=== PATIENT | female | born 1940 ===

== ENCOUNTER → 2023-07-13 10:51 | Outpatient (REF) | payer MEDICARE, OTHER, SELFPAY ==
[2023-07-13 11:53] LABS: % Basophils 1.1 % (0-2); % Eosinophils 12.1 % (0-6); % Immature Granulocytes 0.1 % (0-0.5); % Lymphocytes 36.9 % (20.5-51.1); % Monocytes 13.1 % (1.7-9.3); % Neutrophils 36.7 % (42.2-75.2); Absolute Basophils 0.1 10^3/uL (0-0.2); Absolute Eosinophils 0.9 10^3/uL (0-0.7); Absolute Lymphocytes 2.8 10^3/uL (1.2-3.4); Absolute Neutrophils 2.8 10^3/uL (1.4-6.5); Hematocrit 21.9 % (37.0-47.0); Hemoglobin 7.5 g/dL (12.0-16.0); Mean Corp Hgb Conc. 34.2 g/dL (33.0-37.0); Mean Corpuscular Hgb 37.9 pg (27.0-31.0); Mean Corpuscular Volume 110.6 fL (81.0-99.0); Nucleated Red Blood Cells % 0 %; Platelet Count 239 10^3/uL (130-400); Red Blood Cell Count 1.98 10^6/uL (4.20-5.40); Red Cell Dist. Width 14.9 % (11.5-14.5); White Blood Cell Count 7.5 10^3/uL (4.8-10.8)
== END ==
LOC: OLABP 10:51
PROVIDERS: ATTENDING PHYSICIAN Family Medicine
DX: F41.9 Anxiety disorder, unspecified (principal); F32.9 Major depressive disorder, single episode, unspecified; G40.509 Epileptic seizures related to external causes, not intractable, without status epilepticus; E78.5 Hyperlipidemia, unspecified; I10 Essential (primary) hypertension
CPT/HCPCS: 36415; 85025

== ENCOUNTER → 2023-07-20 10:32 | Outpatient (REF) | payer MEDICARE, OTHER, SELFPAY ==
[2023-07-20 11:25] LABS: Hematocrit 21.9 % (37.0-47.0); Hemoglobin 7.5 g/dL (12.0-16.0); Mean Corp Hgb Conc. 34.2 g/dL (33.0-37.0); Mean Corpuscular Hgb 37.7 pg (27.0-31.0); Mean Corpuscular Volume 110.1 fL (81.0-99.0); Mean Platelet Volume 11.5 fL (7.4-10.4); Platelet Count 190 10^3/uL (130-400); Red Blood Cell Count 1.99 10^6/uL (4.20-5.40); Red Cell Dist. Width 14.4 % (11.5-14.5); White Blood Cell Count 6.6 10^3/uL (4.8-10.8)
== END ==
LOC: OLABP 10:32
PROVIDERS: ATTENDING PHYSICIAN Family Medicine
DX: F41.9 Anxiety disorder, unspecified (principal); F32.9 Major depressive disorder, single episode, unspecified; G40.509 Epileptic seizures related to external causes, not intractable, without status epilepticus; E78.5 Hyperlipidemia, unspecified; I10 Essential (primary) hypertension
CPT/HCPCS: 36415; 85027

== ENCOUNTER → 2023-08-17 10:34 | Outpatient (REF) | payer MEDICARE, OTHER, SELFPAY ==
[2023-08-17 12:16] LABS: % Basophils 1.3 % (0-2); % Eosinophils 13.6 % (0-6); % Immature Granulocytes 0.1 % (0-0.5); % Lymphocytes 36.8 % (20.5-51.1); % Monocytes 12.6 % (1.7-9.3); % Neutrophils 35.6 % (42.2-75.2); Absolute Basophils 0.1 10^3/uL (0-0.2); Absolute Lymphocytes 2.6 10^3/uL (1.2-3.4); Absolute Monocytes 0.9 10^3/uL (0.1-0.6); Absolute Neutrophils 2.5 10^3/uL (1.4-6.5); Hematocrit 21.3 % (37.0-47.0); Hemoglobin 7.3 g/dL (12.0-16.0); Mean Corp Hgb Conc. 34.3 g/dL (33.0-37.0); Mean Corpuscular Hgb 37.8 pg (27.0-31.0); Mean Corpuscular Volume 110.4 fL (81.0-99.0); Mean Platelet Volume 10.4 fL (7.4-10.4); Nucleated Red Blood Cells % 0 %; Platelet Count 249 10^3/uL (130-400); Red Blood Cell Count 1.93 10^6/uL (4.20-5.40); Red Cell Dist. Width 14.7 % (11.5-14.5); White Blood Cell Count 7.1 10^3/uL (4.8-10.8)
[2023-08-17 19:14] LABS: Urine Albumin Negative (Neg - Trace); Urine Bilirubin Negative (Negative); Urine Character Clear (Clear); Urine Color Yellow; Urine Glucose Negative (Negative); Urine Ketone Negative (Negative); Urine Leukocyte Trace (Negative); Urine Nitrite Negative (Negative); Urine Occult Blood Negative (Negative); Urine Urobilinogen Negative (Neg - 1+)
[2023-08-17 20:33] LABS: Urine Bacteria Few (Negative)
== END ==
LOC: OLABP 10:34
PROVIDERS: ATTENDING PHYSICIAN Family Medicine
DX: F41.9 Anxiety disorder, unspecified (principal); F32.9 Major depressive disorder, single episode, unspecified; G40.509 Epileptic seizures related to external causes, not intractable, without status epilepticus; E78.5 Hyperlipidemia, unspecified; I10 Essential (primary) hypertension; N39.0 Urinary tract infection, site not specified
CPT/HCPCS: 36415; 81003; 81015; 85025; 87086

== ENCOUNTER → 2023-09-25 11:20 | Outpatient (REF) | payer MEDICARE, OTHER, SELFPAY ==
[2023-09-25 13:25] LABS: % Basophils 0.8 % (0-2); % Eosinophils 15.1 % (0-6); % Immature Granulocytes 0.1 % (0-0.5); % Lymphocytes 30.8 % (20.5-51.1); % Monocytes 10.1 % (1.7-9.3); % Neutrophils 43.1 % (42.2-75.2); Absolute Basophils 0.1 10^3/uL (0-0.2); Absolute Eosinophils 1.3 10^3/uL (0-0.7); Absolute Lymphocytes 2.6 10^3/uL (1.2-3.4); Absolute Monocytes 0.8 10^3/uL (0.1-0.6); Absolute Neutrophils 3.6 10^3/uL (1.4-6.5); Hematocrit 21.1 % (37.0-47.0); Hemoglobin 7.2 g/dL (12.0-16.0); Mean Corp Hgb Conc. 34.1 g/dL (33.0-37.0); Mean Corpuscular Hgb 36.4 pg (27.0-31.0); Mean Corpuscular Volume 106.6 fL (81.0-99.0); Mean Platelet Volume 10.9 fL (7.4-10.4); Nucleated Red Blood Cells % 0 %; Platelet Count 229 10^3/uL (130-400); Red Blood Cell Count 1.98 10^6/uL (4.20-5.40); Red Cell Dist. Width 15.2 % (11.5-14.5); White Blood Cell Count 8.3 10^3/uL (4.8-10.8)
[2023-09-25 14:25] LABS: Blood Urea Nitrogen 31 mg/dl (7-17); Calcium 9.1 mg/dl (8.4-10.2); Carbon Dioxide 27 mmol/L (22-30); Chloride 102 mmol/L (98-107); Glucose 96 mg/dl (70-99); Potassium 3.7 mmol/L (3.5-5.1); Sodium 137 mmol/L (135-145); eGFR 45.19
[2023-09-25 14:35] LABS: Free T4 1.12 ng/dl (0.78-2.19)
[2023-09-25 14:49] LABS: TSH 7.06 uIU/ml (0.47-4.68)
== END ==
LOC: OLABP 11:20
PROVIDERS: ATTENDING PHYSICIAN Family Medicine
DX: F41.9 Anxiety disorder, unspecified (principal); F32.9 Major depressive disorder, single episode, unspecified; G40.509 Epileptic seizures related to external causes, not intractable, without status epilepticus; E78.5 Hyperlipidemia, unspecified; I10 Essential (primary) hypertension
CPT/HCPCS: 36415; 80048; 84439; 84443; 85025

== ENCOUNTER → 2023-10-01 11:29 | Outpatient (REF) | payer SELFPAY ==
[2023-10-01 12:22] LABS: % Eosinophils 15.3 % (0-6); % Immature Granulocytes 0.1 % (0-0.5); % Lymphocytes 32.5 % (20.5-51.1); % Monocytes 13.1 % (1.7-9.3); Absolute Basophils 0.1 10^3/uL (0-0.2); Absolute Eosinophils 1.1 10^3/uL (0-0.7); Absolute Lymphocytes 2.2 10^3/uL (1.2-3.4); Absolute Monocytes 0.9 10^3/uL (0.1-0.6); Absolute Neutrophils 2.6 10^3/uL (1.4-6.5); Blood Urea Nitrogen 37 mg/dl (7-17); Calcium 8.9 mg/dl (8.4-10.2); Carbon Dioxide 26 mmol/L (22-30); Chloride 103 mmol/L (98-107); Glucose 100 mg/dl (70-99); Hematocrit 21.9 % (37.0-47.0); Hemoglobin 7.4 g/dL (12.0-16.0); Mean Corp Hgb Conc. 33.8 g/dL (33.0-37.0); Mean Corpuscular Hgb 36.3 pg (27.0-31.0); Mean Corpuscular Volume 107.4 fL (81.0-99.0); Mean Platelet Volume 10.4 fL (7.4-10.4); Nucleated Red Blood Cells % 0.4 %; Platelet Count 293 10^3/uL (130-400); Potassium 3.9 mmol/L (3.5-5.1); Red Blood Cell Count 2.04 10^6/uL (4.20-5.40); Red Cell Dist. Width 15.5 % (11.5-14.5); Sodium 138 mmol/L (135-145); White Blood Cell Count 6.9 10^3/uL (4.8-10.8); eGFR 45.19
== END ==
LOC: OLABP 11:29
PROVIDERS: ATTENDING PHYSICIAN Family Medicine
DX: F41.9 Anxiety disorder, unspecified (principal); F32.9 Major depressive disorder, single episode, unspecified; G40.509 Epileptic seizures related to external causes, not intractable, without status epilepticus; E78.5 Hyperlipidemia, unspecified; I10 Essential (primary) hypertension
CPT/HCPCS: 36415; 80048; 85025

== ENCOUNTER → 2023-10-03 12:13 | Outpatient (REF) | payer MEDICARE, OTHER, SELFPAY ==
[2023-10-03 13:23] LABS: % Basophils 0.8 % (0-2); % Immature Granulocytes 0.4 % (0-0.5); % Lymphocytes 27.9 % (20.5-51.1); % Monocytes 12.4 % (1.7-9.3); % Neutrophils 46.5 % (42.2-75.2); Absolute Basophils 0.1 10^3/uL (0-0.2); Absolute Eosinophils 1.1 10^3/uL (0-0.7); Absolute Lymphocytes 2.6 10^3/uL (1.2-3.4); Absolute Monocytes 1.1 10^3/uL (0.1-0.6); Absolute Neutrophils 4.3 10^3/uL (1.4-6.5); Hemoglobin 7.3 g/dL (12.0-16.0); Mean Corp Hgb Conc. 34.8 g/dL (33.0-37.0); Mean Corpuscular Hgb 37.1 pg (27.0-31.0); Mean Corpuscular Volume 106.6 fL (81.0-99.0); Mean Platelet Volume 11.5 fL (7.4-10.4); Nucleated Red Blood Cells % 0 %; Platelet Count 165 10^3/uL (130-400); Red Blood Cell Count 1.97 10^6/uL (4.20-5.40); Red Cell Dist. Width 15.4 % (11.5-14.5); White Blood Cell Count 9.2 10^3/uL (4.8-10.8)
[2023-10-03 13:51] LABS: Blood Urea Nitrogen 35 mg/dl (7-17); Calcium 8.9 mg/dl (8.4-10.2); Carbon Dioxide 29 mmol/L (22-30); Chloride 100 mmol/L (98-107); Glucose 94 mg/dl (70-99); Sodium 135 mmol/L (135-145); eGFR 50.17
== END ==
LOC: OLABP 12:13
PROVIDERS: ATTENDING PHYSICIAN Family Medicine
DX: F41.9 Anxiety disorder, unspecified (principal); F32.9 Major depressive disorder, single episode, unspecified; G40.509 Epileptic seizures related to external causes, not intractable, without status epilepticus; E78.5 Hyperlipidemia, unspecified; I10 Essential (primary) hypertension
CPT/HCPCS: 36415; 80048; 85025

== ENCOUNTER → 2023-10-19 10:18 | Outpatient (REF) | payer MEDICARE, OTHER, SELFPAY ==
[2023-10-19 11:24] LABS: % Basophils 0.9 % (0-2); % Eosinophils 11.1 % (0-6); % Immature Granulocytes 0.3 % (0-0.5); % Lymphocytes 34.1 % (20.5-51.1); % Monocytes 12.2 % (1.7-9.3); % Neutrophils 41.4 % (42.2-75.2); Absolute Basophils 0.1 10^3/uL (0-0.2); Absolute Eosinophils 0.9 10^3/uL (0-0.7); Absolute Lymphocytes 2.6 10^3/uL (1.2-3.4); Absolute Monocytes 0.9 10^3/uL (0.1-0.6); Absolute Neutrophils 3.2 10^3/uL (1.4-6.5); Hematocrit 21.5 % (37.0-47.0); Hemoglobin 7.5 g/dL (12.0-16.0); Mean Corp Hgb Conc. 34.9 g/dL (33.0-37.0); Mean Corpuscular Hgb 37.9 pg (27.0-31.0); Mean Corpuscular Volume 108.6 fL (81.0-99.0); Mean Platelet Volume 11.4 fL (7.4-10.4); Nucleated Red Blood Cells % 0.3 %; Platelet Count 163 10^3/uL (130-400); Red Blood Cell Count 1.98 10^6/uL (4.20-5.40); Red Cell Dist. Width 15.9 % (11.5-14.5); White Blood Cell Count 7.7 10^3/uL (4.8-10.8)
== END ==
LOC: OLABP 10:18
PROVIDERS: ATTENDING PHYSICIAN Family Medicine
DX: F41.9 Anxiety disorder, unspecified (principal); F32.9 Major depressive disorder, single episode, unspecified; G40.509 Epileptic seizures related to external causes, not intractable, without status epilepticus; E78.5 Hyperlipidemia, unspecified; I10 Essential (primary) hypertension
CPT/HCPCS: 85025

== ENCOUNTER → 2023-11-16 11:56 | Outpatient (REF) | payer MEDICARE, OTHER, SELFPAY ==
[2023-11-16 12:36] LABS: % Eosinophils 9.1 % (0-6); % Immature Granulocytes 0.2 % (0-0.5); % Lymphocytes 42.5 % (20.5-51.1); % Monocytes 10.4 % (1.7-9.3); % Neutrophils 36.8 % (42.2-75.2); Absolute Basophils 0.1 10^3/uL (0-0.2); Absolute Eosinophils 0.9 10^3/uL (0-0.7); Absolute Lymphocytes 4.3 10^3/uL (1.2-3.4); Absolute Neutrophils 3.7 10^3/uL (1.4-6.5); Hematocrit 24.9 % (37.0-47.0); Hemoglobin 8.5 g/dL (12.0-16.0); Mean Corp Hgb Conc. 34.1 g/dL (33.0-37.0); Mean Corpuscular Hgb 37.3 pg (27.0-31.0); Mean Corpuscular Volume 109.2 fL (81.0-99.0); Mean Platelet Volume 11.6 fL (7.4-10.4); Nucleated Red Blood Cells % 0.2 %; Platelet Count 177 10^3/uL (130-400); Red Blood Cell Count 2.28 10^6/uL (4.20-5.40); Red Cell Dist. Width 15.7 % (11.5-14.5)
== END ==
LOC: OLABPG 11:56
PROVIDERS: ATTENDING PHYSICIAN Family Medicine
DX: J18.9 Pneumonia, unspecified organism (principal)
CPT/HCPCS: 36415; 85025

== ENCOUNTER 2023-11-28 20:01 | Inpatient (IN) | payer MEDICARE, OTHER, SELFPAY ==
[2023-11-28] VITALS (12 sets, daily range): BP systolic 94–136; BP diastolic 44–59; BMI 23.4
[2023-11-28 14:27] LABS: % Basophils 0.3 % (0-2); % Eosinophils 0.1 % (0-6); % Immature Granulocytes 0.5 % (0-0.5); % Lymphocytes 6.2 % (20.5-51.1); % Monocytes 6.8 % (1.7-9.3); % Neutrophils 86.1 % (42.2-75.2); Absolute Basophils 0.1 10^3/uL (0-0.2); Absolute Immature Granulocytes 0.1 10^3/uL (0-0.05); Absolute Lymphocytes 1.2 10^3/uL (1.2-3.4); Absolute Monocytes 1.3 10^3/uL (0.1-0.6); Hematocrit 21.3 % (37.0-47.0); Hemoglobin 7.5 g/dL (12.0-16.0); Mean Corp Hgb Conc. 35.2 g/dL (33.0-37.0); Mean Corpuscular Hgb 38.7 pg (27.0-31.0); Mean Corpuscular Volume 109.8 fL (81.0-99.0); Mean Platelet Volume 10.2 fL (7.4-10.4); Nucleated Red Blood Cells % 0 %; Platelet Count 211 10^3/uL (130-400); Red Blood Cell Count 1.94 10^6/uL (4.20-5.40); Red Cell Dist. Width 14.8 % (11.5-14.5); Urine Albumin Trace (Neg - Trace); Urine Bilirubin Negative (Negative); Urine Character Clear (Clear); Urine Color Yellow; Urine Glucose Negative (Negative); Urine Ketone Negative (Negative); Urine Leukocyte Trace (Negative); Urine Nitrite Negative (Negative); Urine Occult Blood Negative (Negative); Urine Urobilinogen Negative (Neg - 1+); White Blood Cell Count 19.7 10^3/uL (4.8-10.8)
[2023-11-28 14:46] LABS: Lactic Acid 1.9 mmol/L (0.7-2.0)
[2023-11-28 14:47] LABS: Urine Mucus Many; Urine Squamous Cell >30 /LPF (Few)
[2023-11-28 14:51] LABS: Urine Red Blood Cell 0-2 /HPF (0-2)
[2023-11-28 14:53] LABS: ALT (SGPT) 68 U/L (0-35); AST (SGOT) 69 U/L (14-36); Albumin 3.7 g/dl (3.5-5.0); Alkaline Phosphatase 79 U/L (38-126); Blood Urea Nitrogen 37 mg/dl (7-17); Calcium 9.1 mg/dl (8.4-10.2); Carbon Dioxide 26 mmol/L (22-30); Chloride 101 mmol/L (98-107); Glucose 154 mg/dl (70-99); Potassium 3.6 mmol/L (3.5-5.1); Sodium 140 mmol/L (135-145); Total Bilirubin 1.6 mg/dl (0.2-1.3); Total Protein 6.3 g/dl (6.3-8.2); Urine Bacteria Few (Negative); eGFR 37.56
--- NOTE | 2023-11-28 15:23 | ED.GENMED ---
History of Present Illness
<Virginia Gusman PA-C - Last Filed: 11/28/23 19:06>
General
Chief Complaint: Fever
Source: patient
Exam Limitations: none
Time Seen by Provider: 11/28/23 14:46
Nursing documentation reviewed up to this point in time: agreed with
History of Present Illness
History of Present Illness:
Patient is an 83-year-old female with history hypertension, dementia presenting to the emergency department from [facility] for evaluation of fever and abdominal pain. Patient's daughter states that she received a call today stating that her mom was
complaining of abdominal pain and was refusing to eat. She was found to have a temp of 101F. Patient's daughter did see mom yesterday and she was asymptomatic and at her baseline. Patient unable to contribute much to history due to dementia
although she does deny any chest pain or shortness of breath. No vomiting. No cough or recent viral URI.
Patient's daughter does report a significant history of UTIs and is wondering if this may be causing symptoms.
Past History
<Virginia Gusman PA-C - Last Filed: 11/28/23 19:06>
Past History
ED Past Medical History: Cancer (Breast CA), CVA (X 2), HTN, Seizures, Hypothyroidism and Other (Ambulatory dysfunction using walker, UTI, urinary retention, anxiety/depression, myxedema coma)
ED Past Surgical History: Other (Cataracts, Lumpectomy)
Social History
Tobacco: Former smoker
Alcohol: None
Personal:
Living: assisted living ([facility])
Review of Systems
<Virginia Gusman PA-C - Last Filed: 11/28/23 19:06>
Review of Systems
Allergies reviewed?: Yes
All Other Systems: ROS reviewed and negative except as documented in HPI and ROS
Phy Exam
<Virginia Gusman PA-C - Last Filed: 11/28/23 19:06>
Physical Exam
Physical Exam:
Vitals: Temp of 101 F. Otherwise vital signs stable.
General: Patient is frail appearing.
Skin: Warm and dry, no rashes or lesions
Head: Normocephalic, atraumatic
Eyes: Sclera nonicteric. EOMs intact. No nystagmus.
Throat: Protecting airway
Neck: Normal ROM, no cervical spine tenderness, no meningismus
Cardiac: Regular rate and rhythm, no murmurs.
Pulm: Normal respiratory effort, no wheezes, rales, rhonchi heard on exam.
Abdomen: Abdomen soft. Moderate diffuse abdominal tenderness without rebound tenderness or guarding. Abdomen nondistended. Abdomen nondistended
Extremities: No evidence of cyanosis or edema
Neuro: Grossly intact.
Psychiatric: Normal affect.
Course
<Virginia Gusman PA-C - Last Filed: 11/28/23 19:06>
Orders/Labs/Results
Orders:
Orders
11/28/23 14:19
Complete Blood Count/With Diff Urgent
Comprehensive Metabolic Panel Urgent
Lactic Acid Urgent
Lipase Urgent
Comment: ADD ON
Urinalysis Reflex To Culture Urgent
Date Specimen was Collected: 11/28/23
Time Specimen was Collected: 14:08
Urine Microscopic Reflex Cult Urgent
Urine Culture Urgent
JANIS Source: U
Specimen Description:
Date Specimen was Collected: 11/28/23
Time Specimen was Collected: 14:08
Comment: ADD ON
11/28/23 Dinner
Full Liquids
Full Liquid: No Red Liquids
11/28/23 15:20
Add On- LAB Urgent
Tests Added?: lipase
CT Abd/Pel (IV only)-DH only Urgent
Comment:
Reason For Exam: diffuse abdominal pain, fever
0.9% Sodium Chloride 1000 ml [Nss] 1,000 ml IV BOLUS
11/28/23 15:21
Acetaminophen [Tylenol] 650 mg PO NOW STA
11/28/23 15:28
Blood Culture Urgent
JANIS Source: Blood/Venous
Specimen Description:
11/28/23 15:32
Blood Culture Urgent
JANIS Source: Blood/Venous
Specimen Description:
11/28/23 16:23
COVID-19 Antigen Urgent
Source: Nasal Swab
11/28/23 17:08
Piperacillin/Tazo 3.375 Gram [Zosyn] 3.375 gram in 50 ml IV NOW
Vancomycin 1 Gram/200 ml [Vancocin] 1 gram in 200 ml IV NOW
11/28/23 17:11
Add On - Microbiology Urgent
Tests Added?: urine culture
11/28/23 17:33
Cefepime HCl [Maxipime] 2,000 mg IV NOW STA
11/28/23 18:51
Admit/Transfer Patient As Directed
Co-Sign Provider:
Level of Care: Inpatient admission
Assign to:: Medical/Surgical
Physician / Group: Hospitalist
Diagnosis: Fever
Reason for Hospitalization: Fever
Expected length of stay greater than two midnights?: Yes
ELOS- Estimated Length of Stay in days: 3
I certify the patient meets the requirements for IP care: Yes
PRN Pain Medication Management As Directed
May give lesser potent ordered pain med per pt: Yes
preference::
Protocol:: Medication orders for pain may be administered in a
manner that supports deferring to patient preference
when the pt is:
- Requesting an ordered lesser potent pain medication.
Least to most potent pain medications are defined
as: acetaminophen < NSAID < tramadol < opioids
(morphine, oxycodone, hydromorphone).
- Requesting a lesser dose of the same medication IF
ORDERED.
- Requesting a less intrusive route of administration
if both routes are prescribed by the provider (PO <
IV).
11/28/23 18:59
Code Status As Directed
Resuscitation Status: Do not resuscitate
Reached after discussion with pt or family/Healthcare POA: Yes
DNR Bracelet Application ONCE
11/28/23 19:06
DX Deep Vein Thrombosis Video Routine
11/28/23 19:06
Bladder Scan As Directed
Follow Bladder Retention/Intermittent Cath Algorithm?: Yes
PRN if no void in __ hours: 6
Frequency: Per Retention Algorithm
If Bladder Scan Result >: 400
then:: Straight cath
I&O [Intake/ Output] As Directed
Frequency: q12h
Sequential Compression Device [Pneumatic Compression Sleeves] As Directed
Type: Knee high
Straight Cath As Directed
Frequency: Per Retention Algorithm
Additional Instructions: straight cath as needed per acute urinary retention algorithm for 24 hrs
Additional Instructions: for bladder scan greater than 400 mL
11/28/23 19:17
H&H Q6H
11/28/23 19:31
Type And Crossmatch Urgent
11/28/23 19:44
CR Chest - 2 Views Urgent
Comment:
Reason For Exam: Fever
11/29/23 01:17
H&H Q6H
Abnormal Lab Results
11/28/23
14:19
WBC 19.7 H 10^3/uL
(4.8-10.8)
RBC 1.94 L 10^6/uL
(4.20-5.40)
Hgb 7.5 L g/dL
(12.0-16.0)
Hct 21.3 L %
(37.0-47.0)
MCV 109.8 H fL
(81.0-99.0)
MCH 38.7 H pg
(27.0-31.0)
RDW 14.8 H %
(11.5-14.5)
Abs Immat Gran (auto) 0.1 H 10^3/uL
(0-0.05)
Absolute Neuts (auto) 17.0 H 10^3/uL
(1.4-6.5)
Absolute Monos (auto) 1.3 H 10^3/uL
(0.1-0.6)
Neutrophils % 86.1 H %
(42.2-75.2)
Lymphocytes % 6.2 L %
(20.5-51.1)
BUN 37 H mg/dl
(7-17)
Creatinine 1.4 H mg/dL
(0.6-1.0)
Glucose 154 H mg/dl
(70-99)
Total Bilirubin 1.6 H mg/dl
(0.2-1.3)
AST 69 H U/L
(14-36)
ALT 68 H U/L
(0-35)
Leukocyte Esterase Rfl Trace A
(Negative)
Urine Bacteria (Reflex) Few A
(Negative)
11/28/23 14:19
Vital Signs
Initial and Last Documented VS:
Initial Vital Signs
BP
109/47
11/28/23 14:07
Last Documented Vital Signs
Temp Pulse Resp BP Pulse Ox
97.6 F 68 21 111/44 93
11/28/23 17:28 11/28/23 19:00 11/28/23 19:00 11/28/23 19:00 11/28/23 18:10
<Tom Elias, DO - Last Filed: 11/28/23 19:46>
Orders/Labs/Results
Orders:
Orders
11/28/23 14:19
Complete Blood Count/With Diff Urgent
Comprehensive Metabolic Panel Urgent
Lactic Acid Urgent
Lipase Urgent
Comment: ADD ON
Urinalysis Reflex To Culture Urgent
Date Specimen was Collected: 11/28/23
Time Specimen was Collected: 14:08
Urine Microscopic Reflex Cult Urgent
Urine Culture Urgent
JANIS Source: U
Specimen Description:
Date Specimen was Collected: 11/28/23
Time Specimen was Collected: 14:08
Comment: ADD ON
11/28/23 Dinner
Full Liquids
Full Liquid: No Red Liquids
11/28/23 15:20
Add On- LAB Urgent
Tests Added?: lipase
CT Abd/Pel (IV only)-DH only Urgent
Comment:
Reason For Exam: diffuse abdominal pain, fever
0.9% Sodium Chloride 1000 ml [Nss] 1,000 ml IV BOLUS
11/28/23 15:21
Acetaminophen [Tylenol] 650 mg PO NOW STA
11/28/23 15:28
Blood Culture Urgent
JANIS Source: Blood/Venous
Specimen Description:
11/28/23 15:32
Blood Culture Urgent
JANIS Source: Blood/Venous
Specimen Description:
11/28/23 16:23
COVID-19 Antigen Urgent
Source: Nasal Swab
11/28/23 17:08
Piperacillin/Tazo 3.375 Gram [Zosyn] 3.375 gram in 50 ml IV NOW
Vancomycin 1 Gram/200 ml [Vancocin] 1 gram in 200 ml IV NOW
11/28/23 17:11
Add On - Microbiology Urgent
Tests Added?: urine culture
11/28/23 17:33
Cefepime HCl [Maxipime] 2,000 mg IV NOW STA
11/28/23 18:51
Admit/Transfer Patient As Directed
Co-Sign Provider:
Level of Care: Inpatient admission
Assign to:: Medical/Surgical
Physician / Group: Hospitalist
Diagnosis: Fever
Reason for Hospitalization: Fever
Expected length of stay greater than two midnights?: Yes
ELOS- Estimated Length of Stay in days: 3
I certify the patient meets the requirements for IP care: Yes
PRN Pain Medication Management As Directed
May give lesser potent ordered pain med per pt: Yes
preference::
Protocol:: Medication orders for pain may be administered in a
manner that supports deferring to patient preference
when the pt is:
- Requesting an ordered lesser potent pain medication.
Least to most potent pain medications are defined
as: acetaminophen < NSAID < tramadol < opioids
(morphine, oxycodone, hydromorphone).
- Requesting a lesser dose of the same medication IF
ORDERED.
- Requesting a less intrusive route of administration
if both routes are prescribed by the provider (PO <
IV).
11/28/23 18:59
Code Status As Directed
Resuscitation Status: Do not resuscitate
Reached after discussion with pt or family/Healthcare POA: Yes
DNR Bracelet Application ONCE
11/28/23 19:06
DX Deep Vein Thrombosis Video Routine
11/28/23 19:06
Bladder Scan As Directed
Follow Bladder Retention/Intermittent Cath Algorithm?: Yes
PRN if no void in __ hours: 6
Frequency: Per Retention Algorithm
If Bladder Scan Result >: 400
then:: Straight cath
I&O [Intake/ Output] As Directed
Frequency: q12h
Sequential Compression Device [Pneumatic Compression Sleeves] As Directed
Type: Knee high
Straight Cath As Directed
Frequency: Per Retention Algorithm
Additional Instructions: straight cath as needed per acute urinary retention algorithm for 24 hrs
Additional Instructions: for bladder scan greater than 400 mL
11/28/23 19:17
H&H Q6H
11/28/23 19:31
Type And Crossmatch Urgent
11/28/23 19:44
CR Chest - 2 Views Urgent
Comment:
Reason For Exam: Fever
11/29/23 01:17
H&H Q6H
Abnormal Lab Results
11/28/23
14:19
WBC 19.7 H 10^3/uL
(4.8-10.8)
RBC 1.94 L 10^6/uL
(4.20-5.40)
Hgb 7.5 L g/dL
(12.0-16.0)
Hct 21.3 L %
(37.0-47.0)
MCV 109.8 H fL
(81.0-99.0)
MCH 38.7 H pg
(27.0-31.0)
RDW 14.8 H %
(11.5-14.5)
Abs Immat Gran (auto) 0.1 H 10^3/uL
(0-0.05)
Absolute Neuts (auto) 17.0 H 10^3/uL
(1.4-6.5)
Absolute Monos (auto) 1.3 H 10^3/uL
(0.1-0.6)
Neutrophils % 86.1 H %
(42.2-75.2)
Lymphocytes % 6.2 L %
(20.5-51.1)
BUN 37 H mg/dl
(7-17)
Creatinine 1.4 H mg/dL
(0.6-1.0)
Glucose 154 H mg/dl
(70-99)
Total Bilirubin 1.6 H mg/dl
(0.2-1.3)
AST 69 H U/L
(14-36)
ALT 68 H U/L
(0-35)
Leukocyte Esterase Rfl Trace A
(Negative)
Urine Bacteria (Reflex) Few A
(Negative)
11/28/23 14:19
Vital Signs
Initial and Last Documented VS:
Initial Vital Signs
BP
109/47
11/28/23 14:07
Last Documented Vital Signs
Temp Pulse Resp BP Pulse Ox
97.6 F 68 21 111/44 93
11/28/23 17:28 11/28/23 19:00 11/28/23 19:00 11/28/23 19:00 11/28/23 18:10
<Virginia Gusman PA-C - Last Filed: 11/28/23 19:06>
MDM/Problems Addressed
Differential Diagnosis Includes:
Not limited to: Cholecystitis, cholangitis, choledocholithiasis, appendicitis, bowel perforation, bowel obstruction, diverticulitis, UTI, urosepsis, pyelonephritis
MDM/Problems Addressed:
83-year-old female with history as documented presenting from nursing facility for evaluation of abdominal pain and associated fever today. No vomiting. Patient has stable vital signs, febrile to 101F on arrival to emergency department. Physical
exam as above. Patient in no apparent distress. No focal neurologic deficits noted, patient appears at her baseline. Abdomen is soft and diffusely tender throughout. Heart regular rate and rhythm. Lungs clear bilaterally. Patient appears in no
apparent respiratory distress. Labs were initiated in triage which are significant for a leukocytosis of 19.7. Hemoglobin of 7.5 which appears chronic and stable per patient's history of anemia. Mild renal insufficiency noted with elevation in
creatinine to 1.4. Lactic acid was normal. Some elevation noted to total bilirubin to 1.6 and mild elevation in both AST and ALT. Lipase is normal. Given patient's history of leukocytosis with abdominal pain�will check CT abdomen/pelvis. Will
check UA, as well. Will treat fever with Tylenol, give IV fluids. Will send blood cultures. Anticipate admission
Urine does not appear infected. Will send urine culture given patient history and fever. CT report reviewed. No acute intra-abdominal abnormalities noted. Patient's fever has come down to 97.6F. COVID negative�no respiratory symptoms, do not
suspect pulmonary etiology. Differential broad although includes cholangitis, choledocholithiasis, bacteremia, etc. Patient remains hemodynamically stable. Will initiate broad-spectrum antibiotics including vancomycin and cefepime given patient's
PCN allergy. Given significant leukocytosis, fever, and patient age�will admit to hospitalist for further evaluation/management. May benefit from GI consult and further imaging. Blood cultures and urine culture pending.
Chronic conditions affecting care:
Hypertension
Acute Exacerbation and/or Progression of Chronic Illness:
N/A
<Virginia Gusman PA-C - Last Filed: 11/28/23 19:06>
*Radiology
Radiology exam reviewed: preliminary read by ED provider and radiology read reviewed
*Pulse Oximetry
Patient hypoxic: no
*EKG
Interpreted by ED Provider?: NA
*Jewel Setter Interpretation
Rate: normal and Jewel Setter- N/A
Interpretation: normal
Heart Rate: 68
Rhythm: sinus
*Critical Care Note
Total Time (30-74mins, 75-104mins- exclusive of procedures): Not Applicable
<Virginia Gusman PA-C - Last Filed: 11/28/23 19:06>
Patient Management
Discussion with other providers: Hospitalist
Escalation/DeEscalation of care consider admission/obs:
Admit for IV antibiotics, further workup for etiology of abdominal pain and fever
ED Attending Note
<Virginia Gusman PA-C - Last Filed: 11/28/23 19:06>
-
Portions of this chart may have been created with voice recognition software.� Occasional wrong word or��sound alike� substitutions may have occurred due to the inherent limitations of voice recognition software.
<Tom Elias DO - Last Filed: 11/28/23 19:46>
ED Attending Note
Patient seen and examined by attending physician: Yes
I performed the substantive portion of visit, reviewed & personally made and approve the management plan that is documented in note by myself or ALEC.: Yes
ED Attending Note:
83-year-old female who presents with a fever and change in mental status. I did independently speak with the patient's daughter who states that yesterday she was with her and seemed fine. Was called by the nurse today that she did not want to eat
and did not seem herself. She is found to be febrile. Patient was sent for evaluation. It is noted that there was some concern for abdominal pain. Exam: Moderate to severe tenderness throughout the abdomen. Patient slightly confused. No
respiratory distress. Heart regular. Assessment and plan: Leukocytosis noted in the face of fever in an elderly patient. Lactic okay. CT grossly negative. Check chest x-ray. Treat with broad-spectrum antibiotics pending cultures.
Discharge Plan
Departure
Patient Disposition: Admit
Date of Disposition: 11/28/23
Time of Disposition: 17:12
Presentation/result/management discussed w/ accepting MD/DO: Hospitalist
Discharge Problem:
Fever, Leukocytosis
Prescriptions:
No Action
atorvastatin 80 mg Tablet
80 mg PO HS
cyanocobalamin (vitamin B-12) 500 mcg Tablet
500 mcg PO DAILY
bisacodyl [Dulcolax (bisacodyl)] 10 mg Suppository
10 mg CA DAILY PRN (Reason: constipation)
losartan 50 mg tablet
50 mg PO DAILY
diltiazem HCl 240 mg capsule,extended release 24hr
240 mg PO DAILY
levothyroxine 150 mcg tablet
150 mcg PO DAILY
gabapentin 100 mg capsule
100 mg PO HS
folic acid 400 mcg Tablet
0.4 mg PO DAILY
magnesium hydroxide [Milk of Magnesia] 400 mg/5 mL Suspension
30 ml PO Q98H PRN (Reason: day 4 no bm)
ferrous sulfate 325 mg (65 mg iron) Tablet
325 mg PO Q48H
furosemide 40 mg Tablet
40 mg PO DAILY
acetaminophen [Tylenol] 325 mg Tablet
650 mg PO Q4HPRN MDD 3000 mg PRN (Reason: mild pain/fever >100)
Fleet Enema 19-7 gram/118 mL Enema
118 ml CA DAILYPRN PRN (Reason: constipation)
memantine 10 mg Tablet
10 mg PO DAILY
donepezil 10 mg Tablet,Disintegrating
10 mg PO DAILY
diclofenac sodium 1 % Gel
1 ea TOPICAL BID
Referrals:
Gagan Allison MD [Family Provider] -
Interventions
Interventions:
*Risk Screen - Suicide Last Done: 11/28/23 14:14
*General Assessment Last Done: 11/28/23 14:13
*Neglect/Abuse Screening Last Done: 11/28/23 14:14
*ED COVID-19 Vaccine History Last Done: 11/28/23 14:13
ED- Neurological Assessment Last Done: 11/28/23 14:15
ED-Skin Assessment Last Done: 11/28/23 14:15
Discharge Date and Time
Print Language: BARBADIAN
[2023-11-28] MEDS: TYLENOL 650 MG PO (16:06)
[2023-11-28] MEDS: NSS 1000 IV (16:06)
[2023-11-28 16:28] LABS: Lipase 33 U/L (23-300)
[2023-11-28 16:48] LABS: COVID-19 Antigen Negative (Negative)
[2023-11-28] MEDS: VANCOCIN 200 IV (17:19)
[2023-11-28] MEDS: MAXIPIME 2000 MG IV (18:27)
--- NOTE | 2023-11-28 19:28 | HPS.HSE ---
Family Physician
-
Family Physician: Gagan Allison MD
Chief Complaint
-
'left leg hurts' and 'hungry'
History of Present Illness
83yo F with PMH chronic anemia, dementia, CVAs, h/o UTIs vs urinary retention, presents from [facility] to ED 11/27 due to reported abdominal pain and decreased appetite. Shawna is a poor historian and her only complaints that she reports to me is that
her left leg/knee hurts and that she is hungry because 'they didn't give me any food today.' Review of systems otherwise is entirely negative, and she denies abdominal pain, poor appetite, pain/difficulty/choking when swallowing, nausea, vomiting.
Also denies fevers, chills, headache, lightheadedness, dizziness, chest pain, shortness of breath, cough. History primarily obtained from review of records and daughter Sonia at bedside. Per her daughter, the day nurse at [facility] tried to
encourage patient to eat today, but she refused meals and only had mateus gibson and a bit of jello. She has occasional right sided pain, thought to be positional. Prior to this, she was in her usual state of health which is confused, minimally
ambulatory with assistance (primarily in wheelchair), with decent appetite. Last bowel movement was yesterday, no black or bloody stools per daughter. Unclear if any pain or difficulty when voiding. Denies vaginal bleeding.
Medical History
Past Medical History
Past Medical History: Reports Cancer, CVA, Dementia, HTN, Hypercholesterolemia, Hypothyroidism and Seizures
Additional Past Medical History:
Chronic anemia
Hypothyroidism
Breast cancer s/p lumpectomy ~40y ago
Dementia
CVA- 09/2022, 05/2022, 2014
Seizures- most recently 09/2022
Ambulatory dysfunction
HTN
?Urinary retention
?UTIs
Past Surgical History: Reports Other
Additional Past Surgical History:
Lumpectomy ~40y ago
Daughter denies other surgical history
Social History
Unable to obtain full social history at this time due to: Dementia
Living: Jail
Family History
Family History: Unable to Obtain
Allergies / Home Medications
Allergies reflects when Allergies were last updated in [employer].
Home Medications with original date entered in [employer]
Allergy/Medication List:
Diphenhydramine- ?rash
PCN- ?rash
furosemide/lasix- hearing loss
Review of Systems
-
Unable to obtain full review of systems at this time due to: Dementia
History Source: Patient and Family
Physical Exam
Vital Signs
Vital Signs
Temp Pulse Resp BP Pulse Ox
97.6 F 68 21 111/44 93
11/28/23 17:28 11/28/23 19:00 11/28/23 19:00 11/28/23 19:00 11/28/23 18:10
Physical Exam
General: Other (elderly woman who appears her stated age, appears uncomfortable, +frontotemporal wasting; pleasant, confused; some expressive aphasia, patient seems frustrated by this)
HEENT: NormoCephalic, Anicteric and Atraumatic
Respiratory: Clear and Non Labored Respirations; No Wheezes
Cardiac: S1/S2 and Regular Rhythm
GI: Soft, Non Distended, Normal Bowel Sounds and Tender (mild TTP left)
Musculoskeletal: No Clubbing, No Cyanosis and No Edema
Skin: Warm and Dry
Neuro: Awake, Alert, Oriented (oriented to person only (name/); states that she is in [facility], and the month is September) and Tremors
Psych: Confused, Anxious and Apparent Dementia; No Intact Judgment/Insight
Laboratory Results
-
11/28/23 14:19
Laboratory Results
Lactic Acid 1.9 mmol/L (0.7-2.0) 11/28/23 14:19
Total Bilirubin 1.6 mg/dl (0.2-1.3) H 11/28/23 14:19
AST 69 U/L (14-36) H 11/28/23 14:19
ALT 68 U/L (0-35) H 11/28/23 14:19
Alkaline Phosphatase 79 U/L (38-126) 11/28/23 14:19
Lipase 33 U/L (23-300) 11/28/23 14:19
Data Reviewed
-
CT Scan: Image Personally Visualized and interpreted, Report Reviewed by me and Discussed with Physician
Lab Data: Labs Reviewed by me and Discussed with Physician
Old Records: Reviewed
Impression/Plan
-
83yo F with PMH chronic anemia, dementia, CVAs, h/o UTIs vs urinary retention, presents from [facility] to ED 11/27 for poor oral intake, and found to be febrile with leukocytosis
Fever of unknown etiology
Leukocytosis
SIRS criteria
- Urine culture pending, blood culture x2 pending
- Will continue empiric cefepime, vanc started in ED and add metronidazole.
- PCN allergy noted, uncertain reaction, will avoid zosyn at this time
- Follow fever trend, repeat AM CBC with diff, gentle IV hydration
- Await further results and will reassess plan
Chronic anemia
- Hgb on arrival 7.5 (baseline appears to be in 7-8s)
- Serial H&Hs x2 overnight, repeat CBC in AM
- Iron studies, b12, folate pending
- Check reticulocyte count, peripheral blood smear
- Type and cross match ordered
- Transfuse for hgb < 7, or if concern for symptomatic anemia or blood loss
- Continue home B12, Fe
- Avoid pharmaceutical vte ppx
Hypothyroidism
- TSH pending
- Continue home synthroid 150 mcg qd
HTN
- Hold diltiazem given low normal BPs in ED
- Continue to monitor VS
?History of urinary retention
?History of UTIs
- UA, urine culture as above
- Bladder scan protocol, attempt trial of void prior to straight catheterization
- I&Os
Dementia- continue home memantine and donepezil
History of CVA x3
Seizures- most recently 09/2022; not on medications, unknown etiology; seizure precautions
Ambulatory dysfunction- uses wheelchair at baseline, ambulatory for few steps with assistance per daughter
HLD- continue home atorvastatin
Chronic pain- continue acetaminophen prn, home gabapentin 100mg qhs, home topical diclofenac prn
Diet: full liquid
Code: DNR
POA: Daughter Sonia
VTE ppx: SCDs
Dispo planning: TBD
[2023-11-28 20:28] LABS: Hematocrit 19.4 % (37.0-47.0); Hemoglobin 6.9 g/dL (12.0-16.0)
--- NOTE | 2023-11-28 21:10 | PTCARENOTE ---
Pt received from ED to [facility].
--- NOTE | 2023-11-28 21:41 | W.PN.UPDATE ---
Update Note
Progress Note Update
RN notified BRIE[facility] SEWER of hgb 6.9, no active bleeding, 118/55 BP, HR is 55, SPO2 is 94% at RA, RR 22. Patient is confused (Dementia) Blood consent received via telephone from daughter Sonia. Type and screen pending. will order 1 unit of PRBC. heme test
ordered.
[2023-11-28] MEDS: FLAGYL 500 MG PO (21:48)
[2023-11-28] MEDS: NEURONTIN 100 MG PO (21:48)
[2023-11-28] MEDS: LIPITOR 80 MG PO (21:48)
--- NOTE | 2023-11-28 22:47 | PHA.VAN.IN ---
Assessment
- Assessment
Renal Function: Appears elevated from baseline (03/30/23 BASELINE SCR: 0.8)
Concomitant Antimicrobials: CEFEPIME
- Previous Dosing Experience
Previous Regimen: NONE
Plan
- Plan
Initial / Loading Dose: 1500MG
Maintenance Regimen: DOSING BY RANDOM LEVELS
Monitoring: RANDOM VANCOMYCIN LEVEL 11/29/23 AM
Pharmacokinetics Vancomycin I
- -
Patient Age: 83
Patient Sex: Female
Vancomycin Day #: 1
Indication: Other (FUO)
Requesting Provider: JUANI
Pertinent Antimicrobial Allergies:
Allergies
Penicillins Allergy (Verified 11/28/23 17:12)
Unknown
Height / Weight:
Height 5 ft 6 in
Actual Weight 65.862 kg
- Vital Signs / Lab Results
Temp Pulse Resp BP Pulse Ox
98.1 F 73 16 136/59 92
11/28/23 22:17 11/28/23 22:17 11/28/23 22:17 11/28/23 22:17 11/28/23 21:30
Lab Results - Hematology
11/28/23
14:19
WBC 19.7 H
Lab Results - Chemistry
11/28/23
14:19
BUN 37 H
Creatinine 1.4 H
Albumin 3.7
11/28/23
14:19
Lactic Acid 1.9
Lab Results - Urine
11/28/23
14:19
Urine Nitrite (Reflex) Negative
Leukocyte Esterase Rfl Trace A
Urine WBC (Reflex) 3-5
Ur Squamous Epith Cells >30
Urine Bacteria (Reflex) Few A
[2023-11-29 00:40] VITALS: BP 141/45
[2023-11-29 00:45] VITALS: BP 141/45
[2023-11-29] MEDS: NSS 500 IV (00:56)
[2023-11-29] MEDS: VANCOCIN HCL 500 MG 100 IV (00:57)
[2023-11-29] MEDS: DICLOFENAC 1% TOPICAL GEL 1 GRAM TOPICAL ×3 (00:57→20:10)
--- NOTE | 2023-11-29 01:06 | PTCARENOTE ---
Wilber VOGT made aware of end of transfusion T 100.4, with no other s/s of transfusion reaction. LINE SERVICE ATTENDANT does not suspect transfusion reaction at this time.
[2023-11-29 03:17] LABS: Hematocrit 23.2 % (37.0-47.0); Hemoglobin 8.3 g/dL (12.0-16.0)
[2023-11-29] MEDS: SYNTHROID 150 MCG PO (05:35)
[2023-11-29] MEDS: MAXIPIME 1000 MG IV ×2 (05:35→17:42)
[2023-11-29] MEDS: STERILE WATER FOR INJECTION 10 ML IV ×2 (05:36→17:42)
[2023-11-29] MEDS: NSS IV ×2 (07:00→12:51)
[2023-11-29 07:30] VITALS: BP 139/53
[2023-11-29 08:19] LABS: Reticulocyte Count 1.2 % (0.4-2.8)
[2023-11-29 08:28] LABS: Lactic Acid 0.7 mmol/L (0.7-2.0)
[2023-11-29 08:35] LABS: Vancomycin Random 13.6 ug/ml
[2023-11-29 08:45] LABS: ALT (SGPT) 78 U/L (0-35); AST (SGOT) 89 U/L (14-36); Albumin 3.2 g/dl (3.5-5.0); Alkaline Phosphatase 68 U/L (38-126); Blood Urea Nitrogen 29 mg/dl (7-17); Calcium 8.6 mg/dl (8.4-10.2); Carbon Dioxide 24 mmol/L (22-30); Chloride 104 mmol/L (98-107); Estimated Creatinine Clearance 41 ml/min; Glucose 124 mg/dl (70-99); Iron 86 ug/dl (37-170); Potassium 3.5 mmol/L (3.5-5.1); Sodium 138 mmol/L (135-145); Total Protein 5.8 g/dl (6.3-8.2); eGFR 56.25
[2023-11-29 08:54] LABS: Percent Saturation 48 % (20-50); Total Iron Binding Capacity 179 ug/dl (265-497)
[2023-11-29] MEDS: VITAMIN B-12 500 MCG PO (09:20)
[2023-11-29] MEDS: FLAGYL 500 MG PO ×3 (09:20→21:33)
[2023-11-29] MEDS: FOLVITE 0.4 MG PO (09:20)
[2023-11-29] MEDS: ARICEPT 10 MG PO (09:20)
[2023-11-29] MEDS: NAMENDA 10 MG PO (09:20)
--- NOTE | 2023-11-29 09:39 | PHA.VAN.FU ---
Vancomycin Assessment / Plan
- Assessment
Renal Function: SCR Decreasing
Concomitant Antimicrobials: cefepime, metronidazole
Received IV contrast 11/27
- Assessment - Therapeutic Drug Monitoring
Random Level: 13.6 - drawn ~7H after divided 1500mg loading dose
- Dosing Plan
Dosing by Level: Re-dose today (Vanc 750mg)
Will keep dose by level for today as BUN remains slightly elevated to ensure patient clearing appropriately
May consider scheduling dosing in next few days
- Monitoring Plan
Random Level: 11/29 0600
- Follow Up
Pharmacy will continue to follow.
Vancomycin Follow UP
- -
Patient Age: 83
Patient Sex: Female
Vancomycin Day #: 2
Indication: Other
Requesting Provider: Jonathan Roach
Pertinent Antimicrobial Allergies:
Penicillins - Unknown
Height / Weight:
Height 5 ft 6 in
Actual Weight 65.862 kg
- Vital Signs / Lab Results
Temp Pulse Resp BP Pulse Ox
98.7 F 77 16 139/53 99
11/29/23 07:30 11/29/23 07:30 11/29/23 07:30 11/29/23 07:30 11/29/23 08:31
Lab Results - Hematology
11/28/23
14:19
WBC 19.7 H
Lab Results - Chemistry
11/28/23 11/29/23
14:19 07:51
BUN 37 H 29 H
Creatinine 1.4 H 1.0
Estimated Creat Clear 41
Albumin 3.7 3.2 L
11/28/23 11/29/23
14:19 07:51
Lactic Acid 1.9 0.7
Lab Results - Urine
11/28/23
14:19
Urine Nitrite (Reflex) Negative
Leukocyte Esterase Rfl Trace A
Ur Squamous Epith Cells >30
Microbiology Results
11/28/23 15:28 Blood Culture - Preliminary
Blood/Venous Positive culture in progress
Gram Stain - Preliminary
11/28/23 15:32 Blood Culture - Preliminary
Blood/Venous Positive culture in progress
Gram Stain - Preliminary
Therapeutic Drug Monitoring
Random Vancomycin 13.6 ug/ml 11/29/23 07:51
--- NOTE | 2023-11-29 09:45 | W.PN.HOSP.TC ---
Today's Communication/Plan
-
continue antibiotics, follow up labs and culture data
Assessment / Plan
Assessment / Plan
83yo F with PMH chronic anemia, dementia, CVAs, h/o UTIs vs urinary retention, presents from [facility] to ED 11/27 for poor oral intake, and found to be febrile to 101 with leukocytosis. UA, urine culture, blood culture x2 obtained in ED and started on
empiric cefepime, vanc.
Sepsis, bacteremia with unknown source of infection
Leukocytosis
- Tmax 101 @ 1410 11/27, Tlast 100.4 @ 0045 11/28, Tcurrent 98.7 @ 0730 11/28
- WBC 19.1 on admission, neutrophil predominance --> 10.1 today
- Chest xray neg for consolidation or pneumonia
- Abd/pelvis CT negative for diverticulitis, obstructive uropathy, biliary duct dilation. Notes prior cholecystectomy
- UA unremarkable, urine culture pending, blood culture x2 pending
- Blood gram stain: POS for gram+ cocci
- Continue empiric cefepime 1g q12h, vanc (pharmacy dosing), metronidazole 500mg TID.
- PCN allergy noted, uncertain reaction, will avoid zosyn at this time
- Follow fever trend, repeat AM CBC with diff, gentle IV hydration
- Await further results and will reassess plan
Chronic anemia
- Hgb on arrival 7.5 (baseline appears to be in 7-8s)
- S/p 1u pRBC overnight, with improvement in hgb to 8.3
- Hbg this morning 8.2, stable
- Iron studies notable for ferritin 4730, elevated in the context of acute infection
- B12 high, folate wnl
- Reticulocyte count 1.2- inappropriate low given hgb on arrival, though hematopoiesis may be suppressed secondary to current systemic infection
- Peripheral blood smear pending
- Consider transfusion for hgb < 7, or if concern for symptomatic anemia or blood loss
- Continue home Fe supplementation. Can consider IV Fe
- Avoid pharmaceutical vte ppx
Elevated liver enzymes
Pancreatic duct dilation vs cyst
- Mild elevation of AST, ALT, Tbili on admission --> trending up today
- CT A/P report: Unremarkable liver, normal size. Absent gallbladder. Bile duct wnl. Diffuse pancreatic atrophy, low-attenuation/cystic structure ~11 mm in panc head, which may be focal ductal dilatation or small cyst.
- Continue trending LFTs daily. Will consider RUQ US vs MRCP, and/or GI consult to evaluate further
Hypothyroidism
- TSH pending
- Continue home synthroid 150 mcg qd
HTN
- Home diltiazem held given low normal BPs in ED
- BPs overnight 130-140s/40-50s
- Monitor BP and consider restarting diltiazem
?History of urinary retention
?History of UTIs
- UA, urine culture as above
- Bladder scan protocol, attempt trial of void prior to straight catheterization
- I&Os
- Abd/pel CT findings note slightly distended extra renal pelvis bilaterally, 7mm enhancing mass upper pole L kidney. Unlikely to be contributing to current presentation. Follow up in 6 months per radiology.
Dementia- continue home memantine and donepezil
History of CVA x3
Seizures- most recently 09/2022; not on medications, unknown etiology; seizure precautions
Ambulatory dysfunction- uses wheelchair at baseline, ambulatory for few steps with assistance per daughter
HLD- continue home atorvastatin
Chronic pain- continue acetaminophen prn, home gabapentin 100mg qhs, home topical diclofenac prn
Breast cancer s/p lumpectomy
- Unknown laterality, daughter does not think radiation or chemotherapy were used
- CT A/P incidental finding in right breast: asymmetric diffuse cutaneous soft tissue thickening
- Per radiology report, may be related to radiation therapy, inflammation, or inflammatory carcinoma
- Will discuss with patient and her daughter
Diverticulosis
- No CT findings to suggest acute inflammation, diverticulitis, obstruction
Diet: full liquid
Code: DNR
MDM: Daughter Sonia
VTE ppx: SCDs
Dispo planning: TBD
Anticipated Discharge: > 48 hours
Subjective/Interval History
-
Date of Service: November 29, 2023
Overnight she was transfused with 1 unit pRBC. This morning she was sleeping peacefully and easily awoken by verbal stimuli. She has dementia and is confused at baseline. Oriented to self, reports she is at [facility]. She reports left side
pain, no other complaints.
Objective Data
-
Labs:
Laboratory Results
11/29/23 11/29/23
02:55 07:51
Hgb 8.3 L D
Hct 23.2 L
Sodium 138
Potassium 3.5
Chloride 104
Carbon Dioxide 24
BUN 29 H
Creatinine 1.0
Glucose 124 H
Calcium 8.6
Total Bilirubin 2.0 H
AST 89 H
ALT 78 H
Alkaline Phosphatase 68
Vital Signs:
Vital Signs
Temp Pulse Resp BP Pulse Ox
98.7 F 77 16 139/53 99
11/29/23 07:30 11/29/23 07:30 11/29/23 07:30 11/29/23 07:30 11/29/23 08:31
I&O
11/28/23 11/29/23 11/30/23
06:59 06:59 06:59
Intake Total 700 / 700
Balance 700 / 700
Review of Systems
-
Unable to obtain full review of systems at this time due to: Dementia
History Source: Patient
Physical Exam
-
General: Well Developed, No Apparent Distress, Comfortable and Other (sleeping peacefully, easily awoken with verbal stimuli)
HEENT: Normocephalic and Atraumatic
Respiratory: Clear to Auscultation (anterior lung werner) and Non Labored Respirations
Cardiac: Regular Rhythm and S1/S2
GI: Soft, Nondistended, Normal Bowel Sounds and Tender (mild left-sided TTP. No rebound, rigidity, guarding)
Musculoskeletal: No Cyanosis and No Edema
Skin: Warm and Dry
Neuro: Awake, Alert and Nonfocal/Grossly Intact
Psych: Calm, Confused and Apparent Dementia
Data Reviewed
-
CT Scan: Image personally visualized and interpreted, Report Reviewed by me and Discussed with Physician
Labs: Labs Reviewed by me and Discussed with Physician
[2023-11-29 09:53] LABS: Vitamin B12 986 pg/ml (239-931)
[2023-11-29 10:21] LABS: % Basophils 0.6 % (0-2); % Eosinophils 3.1 % (0-6); % Immature Granulocytes 0.3 % (0-0.5); Absolute Basophils 0.1 10^3/uL (0-0.2); Absolute Eosinophils 0.3 10^3/uL (0-0.7); Absolute Neutrophils 7.7 10^3/uL (1.4-6.5); Hematocrit 23.6 % (37.0-47.0); Hemoglobin 8.2 g/dL (12.0-16.0); Mean Corp Hgb Conc. 34.7 g/dL (33.0-37.0); Mean Corpuscular Hgb 36.4 pg (27.0-31.0); Mean Corpuscular Volume 104.9 fL (81.0-99.0); Mean Platelet Volume 11.2 fL (7.4-10.4); Nucleated Red Blood Cells % 0 %; Platelet Count 132 10^3/uL (130-400); Red Blood Cell Count 2.25 10^6/uL (4.20-5.40); Red Cell Dist. Width 18.6 % (11.5-14.5); White Blood Cell Count 10.1 10^3/uL (4.8-10.8)
[2023-11-29 10:52] LABS: Direct Bilirubin 0.7 mg/dl (0.0-0.4); Lipase 37 U/L (23-300)
--- NOTE | 2023-11-29 11:17 | CM ---
met with patient at bedside who was sleeping at time of my visit.called daughter linwood for information.patient is a ltc resident of [facility] for about a year.she is [facility] [employer] except she is able to feed self.daughter states she
recognizes family but doesn't call relatives their respective names.PCP is dr gunn.
PMH:htn,dementia,szs,hypothyroidism,breast ca,amb dysfunction,anxiety/depression,uti's,nyxedema,urinary retention
patient is adm from [facility] with fever.ct abd/pelvis with diverticulosis,on iv cefepine,po flagyl,99% on 2 liters nc o2(no o2 at facility),hgb 6.9.Plan:return to [facility].
[2023-11-29] MEDS: KCL 40 MEQ PO ×2 (11:59→20:11)
[2023-11-29] MEDS: VANCOCIN 150 IV (12:08)
[2023-11-29 15:54] VITALS: BP 133/45
[2023-11-29] MEDS: NSS 1000 IV (17:41)
--- NOTE | 2023-11-29 18:47 | W.PN.UPDATE ---
Update Note
Progress Note Update
At to bedside to evaluate patient. Several family members present, including Sonia who is POA/MDM. They are concerned as they feel her personality has changed here and she is more confused; likely secondary to dementia exacerbated by unfamiliar
settings and infection. Reviewed some radiology findings including absence of gallbladder, possible pancreatic cyst vs duct dilation, normal appearing bladder. Also reviewed evidence of bacteremia, but we are waiting on final culture results from
blood, urine, sputum. Reviewed pRBC transfusion and hgb level. Daughter raised question regarding GI bleed, and we discussed chronic occult bleed vs an acute large volume bleed. The latter is less likely given that there are no reports of
hematochezia or melena from longterm, and no BM here. Discussed plan moving forward and daughter is agreeable.
Returned to bedside with nursing to follow up on radiology report of cutaneous soft tissue thickening in right breast, incidentally found. Physical exam of right breast notable for firm, indurated, dimpled skin of inferior breast. No redness,
ulceration, drainage, fluctuance present. Differential diagnosis includes inflammatory breast cancer, radiation dermatitis, mastitis. Will reassess for change on physical exam tomorrow, as well as review findings and management with daughter.
Discussed with Dr. Hernandez.
[2023-11-29] MEDS: NEURONTIN 100 MG PO (21:33)
[2023-11-29] MEDS: LIPITOR 80 MG PO (21:33)
[2023-11-29 23:35] VITALS: BP 131/55
[2023-11-30] MEDS: MAXIPIME 1000 MG IV ×2 (06:03→18:12)
[2023-11-30] MEDS: STERILE WATER FOR INJECTION 10 ML IV ×2 (06:04→18:12)
[2023-11-30] MEDS: NSS 1000 IV ×2 (06:06→23:32)
[2023-11-30] MEDS: SYNTHROID 150 MCG PO (06:09)
[2023-11-30 07:42] LABS: Vancomycin Random 12.3 ug/ml
[2023-11-30 07:50] VITALS: BP 137/54
[2023-11-30 08:03] LABS: ALT (SGPT) 88 U/L (0-35); AST (SGOT) 100 U/L (14-36); Albumin 3.1 g/dl (3.5-5.0); Alkaline Phosphatase 77 U/L (38-126); Blood Urea Nitrogen 20 mg/dl (7-17); Calcium 8.7 mg/dl (8.4-10.2); Carbon Dioxide 22 mmol/L (22-30); Chloride 106 mmol/L (98-107); Estimated Creatinine Clearance 45 ml/min; Glucose 100 mg/dl (70-99); Potassium 4.4 mmol/L (3.5-5.1); Sodium 140 mmol/L (135-145); Total Protein 5.8 g/dl (6.3-8.2); eGFR > 60.00
[2023-11-30 08:28] LABS: TSH Reflex To Free T4 1.22 uIU/ml (0.47-4.68)
--- NOTE | 2023-11-30 08:38 | PHA.VAN.FU ---
Vancomycin Assessment / Plan
- Assessment
Renal Function: SCR Decreasing (BUN decreased)
Concomitant Antimicrobials: cefepime, metronidazole
- Assessment - Therapeutic Drug Monitoring
Random Level: 12.3 - drawn ~19H after previous dose of 750mg
- Dosing Plan
Dosing by Level: Re-dose today (Vanc 1000mg)
Dosing Comments: may consider scheduling dose in next few days
- Monitoring Plan
Random Level: 11/30 0600 - to follow trend with increased dosing
- Follow Up
Pharmacy will continue to follow.
Vancomycin Follow UP
- -
Patient Age: 83
Patient Sex: Female
Vancomycin Day #: 3
Indication: Other
Requesting Provider: Jonathan Roach
Pertinent Antimicrobial Allergies:
Penicillins - Unknown
Height / Weight:
Height 5 ft 6 in
Actual Weight 65.862 kg
- Vital Signs / Lab Results
Temp Pulse Resp BP Pulse Ox
99.1 F 70 20 131/55 90
11/29/23 23:35 11/29/23 23:35 11/29/23 23:35 11/29/23 23:35 11/29/23 23:35
Lab Results - Hematology
11/28/23 11/29/23 11/29/23
14:19 07:51 10:02
WBC 19.7 H 10.1 Cancelled
Lab Results - Chemistry
11/28/23 11/29/23 11/29/23
14:19 07:51 10:02
BUN 37 H 29 H Cancelled
Creatinine 1.4 H 1.0 Cancelled
Estimated Creat Clear 41 Cancelled
Albumin 3.7 3.2 L Cancelled
11/30/23
07:02
BUN 20 H
Creatinine 0.9
Estimated Creat Clear 45
Albumin 3.1 L
11/28/23 11/29/23
14:19 07:51
Lactic Acid 1.9 0.7
Microbiology Results
11/29/23 00:56 MRSA Screen - Final
Nose No Methicillin Resistant Staphylococcus aureus isolated.
11/28/23 15:32 Blood Culture - Preliminary
Blood/Venous Positive culture in progress
Gram Stain - Preliminary
11/28/23 15:28 Blood Culture - Preliminary
Blood/Venous Positive culture in progress
Gram Stain - Preliminary
Therapeutic Drug Monitoring
Random Vancomycin 12.3 ug/ml 11/30/23 07:02
[2023-11-30 08:51] LABS: % Basophils 0.6 % (0-2); % Eosinophils 12.6 % (0-6); % Immature Granulocytes 0.3 % (0-0.5); % Monocytes 11.1 % (1.7-9.3); % Neutrophils 59.4 % (42.2-75.2); Absolute Basophils 0.1 10^3/uL (0-0.2); Absolute Eosinophils 1.2 10^3/uL (0-0.7); Absolute Lymphocytes 1.5 10^3/uL (1.2-3.4); Absolute Neutrophils 5.5 10^3/uL (1.4-6.5); Hematocrit 23.3 % (37.0-47.0); Hemoglobin 8.2 g/dL (12.0-16.0); Mean Corp Hgb Conc. 35.2 g/dL (33.0-37.0); Mean Corpuscular Hgb 36.6 pg (27.0-31.0); Mean Platelet Volume 10.8 fL (7.4-10.4); Nucleated Red Blood Cells % 0 %; Platelet Count 192 10^3/uL (130-400); Red Blood Cell Count 2.24 10^6/uL (4.20-5.40); Red Cell Dist. Width 17.5 % (11.5-14.5); White Blood Cell Count 9.3 10^3/uL (4.8-10.8)
[2023-11-30] MEDS: FLAGYL 500 MG PO ×3 (09:09→21:32)
[2023-11-30] MEDS: VITAMIN B-12 500 MCG PO (09:09)
[2023-11-30] MEDS: FEOSOL 325 MG PO (09:09)
[2023-11-30] MEDS: ARICEPT 10 MG PO (09:10)
[2023-11-30] MEDS: FOLVITE 0.4 MG PO (09:10)
[2023-11-30] MEDS: NAMENDA 10 MG PO (09:11)
--- NOTE | 2023-11-30 10:11 | W.PN.HOSP.TC ---
Today's Communication/Plan
-
Blood cultures= coagulase negative staphylococcus (prelim). Skin exam, abdomen MRI, R breast US, trend LFTs, continue antibiotics
Assessment / Plan
Assessment / Plan
83yo F with PMH chronic anemia, dementia, CVAs, h/o UTIs vs urinary retention, presents from [facility] to ED 11/27 for poor oral intake, and found to be febrile to 101 with WBC 19.7 with neutrophil predominance. UA, urine culture, blood culture x2
obtained in ED and started on empiric cefepime, vanc.
Sepsis, bacteremia with unknown source of infection
Leukocytosis
- Tmax 101 @ 1410 11/27, Tlast 100.4 @ 0045 11/28, Tcurrent 98.6 @ 0750 11/29
- WBC 19.7 on admission, neutrophil predominance --> 9.3 wnl today
- Chest xray neg for consolidation or pneumonia
- Abd/pelvis CT negative for diverticulitis, obstructive uropathy, biliary duct dilation. Notes prior cholecystectomy.
- UA unremarkable, urine culture negative
- Blood gram stain x2: POS for gram+ cocci in clusters, both anaerobic and aerobic
- Blood culture x2: coagulase neg staphylococcus (prelim)
- Negative for MRSA/MSSA of blood by PCR; nasal screen negative for MRSA
- Continue empiric cefepime 1g q12h, vanc (pharmacy dosing), metronidazole 500mg TID.
- PCN allergy noted, uncertain reaction, will avoid zosyn at this time
- Follow fever trend, repeat AM CBC with diff, gentle IV hydration
- No primary source of infection identified yet. Will continue working up. Plan for thorough skin evaluation today, MRI abdomen, breast ultrasound, and consult ID.
- Await further results and will reassess plan
Chronic anemia
- Hgb on arrival 7.5 (baseline appears to be in 7-8s)
- S/p 1u pRBC 11/27, with improvement in hgb to 8.3
- Hbg this morning 8.2, stable. Do not suspect ongoing blood loss.
- Iron studies notable for ferritin 4730, elevated in the context of acute infection
- B12 high, folate wnl
- Reticulocyte count 1.2- inappropriate low given hgb on arrival, though hematopoiesis may be suppressed secondary to current systemic infection
- Peripheral blood smear pending
- Consider transfusion for hgb < 7, or if concern for symptomatic anemia or blood loss
- Continue home Fe supplementation. Can consider IV Fe
- Avoid pharmaceutical vte ppx
Elevated liver enzymes
Pancreatic duct dilation vs cyst
- Mild elevation of AST, ALT, Tbili on admission (69, 68, 1.6)- likely secondary to SIRS
- CT A/P report: Unremarkable liver, normal size. Absent gallbladder. Bile duct wnl. Diffuse pancreatic atrophy, low-attenuation/cystic structure ~11 mm in panc head, which may be focal ductal dilatation or small cyst.
- AST, ALT uptrending x3 days --> 100 and 88 today. Tbili normalized, alk phos wnl, lipase wnl.
- Hepatocellular pattern, not markedly elevated. Not suspicious for acute hepatitis, drug toxicity, ischemic liver, or liver failure. Suspect elevated AST and ALT are secondary to SIRS/sepsis rather than liver or biliary pathology.
- Do not suspect GI or biliary source of bacteremia
- Continue trending LFTs daily.
- Will get abdominal MRI today. Can consider GI consult
Hypothyroidism
- TSH 1.22 wnl
- Continue home synthroid 150 mcg qd
HTN
- Home diltiazem held given low normal BPs in ED
- BPs overnight 130s/40-50s
- Monitor BP and consider restarting diltiazem
?History of urinary retention
?History of UTIs
- UA, urine culture as above
- Bladder scan protocol, attempt trial of void prior to straight catheterization
- I&Os
- Abd/pel CT findings note slightly distended extra renal pelvis bilaterally, 7mm enhancing mass upper pole L kidney. Unlikely to be contributing to current presentation. Follow up in 6 months per radiology.
Dementia- continue home memantine and donepezil
History of CVA x3
Seizures- most recently 09/2022; not on medications, unknown etiology; seizure precautions
Ambulatory dysfunction- uses wheelchair at baseline, ambulatory for few steps with assistance per daughter
HLD- continue home atorvastatin
Chronic pain- continue acetaminophen prn, home gabapentin 100mg qhs, home topical diclofenac prn
Breast cancer s/p lumpectomy
?R breast mass
- Unknown laterality of cancer/surgery, daughter does not think radiation or chemotherapy were used
- CT A/P incidental finding in right breast: asymmetric diffuse cutaneous soft tissue thickening
- Per radiology report, may be related to radiation therapy, inflammation, or inflammatory carcinoma
- Physical exam notable for firmness and indurated, dimpled skin on inferior aspect of right breast. No erythema, fluctuance, drainage
- Will check breast ultrasound and discuss results with family when available
Diverticulosis
- No CT findings to suggest acute inflammation, diverticulitis, obstruction
Diet: full liquid
Code: DNR
MDM: Daughter Sonia
VTE ppx: SCDs
Dispo planning: TBD
Anticipated Discharge: > 48 hours
Subjective/Interval History
-
Date of Service: November 30, 2023
No acute events overnight. Patient was sleeping peacefully this morning and was not disturbed.
Objective Data
-
Labs:
Laboratory Results
11/30/23 11/30/23
07:02 07:46
WBC 9.3
Hgb 8.2 L
Hct 23.3 L
Plt Count 192 D
Sodium 140
Potassium 4.4 D
Chloride 106
Carbon Dioxide 22
BUN 20 H
Creatinine 0.9
Glucose 100 H
Calcium 8.7
Total Bilirubin 1.0 D
AST 100 H
ALT 88 H
Alkaline Phosphatase 77
Microbiology Results
11/28/23 14:19 Urine Urine Culture - Final
NO GROWTH
11/28/23 15:32 Blood/Venous Blood Culture - Preliminary
Coagulase neg. staphylococcus
11/28/23 15:32 Blood/Venous Gram Stain - Preliminary
11/28/23 15:28 Blood/Venous Blood Culture - Preliminary
Coagulase neg. staphylococcus
11/28/23 15:28 Blood/Venous Gram Stain - Preliminary
11/29/23 00:56 Nose MRSA Screen - Final
No Methicillin Resistant Staphylococcus aureus isolated.
Vital Signs:
Vital Signs
Temp Pulse Resp BP Pulse Ox
98.6 F 68 17 137/54 95
11/30/23 07:50 11/30/23 07:50 11/30/23 07:50 11/30/23 07:50 11/30/23 07:50
I&O
11/29/23 11/30/23 12/01/23
06:59 06:59 06:59
Intake Total 700 / 700
Balance 700 / 700
Review of Systems
-
Unable to obtain full review of systems at this time due to: Dementia
Physical Exam
-
General: Well Developed, No Apparent Distress, Comfortable and Other (sleeping peacefully and was not disturbed)
HEENT: Normocephalic and Atraumatic
Respiratory: Non Labored Respirations
Data Reviewed
-
CT Scan: Image personally visualized and interpreted, Report Reviewed by me and Discussed with Physician
Labs: Labs Reviewed by me and Discussed with Physician
[2023-11-30] MEDS: DICLOFENAC 1% TOPICAL GEL 1 GRAM TOPICAL ×2 (12:45→21:14)
[2023-11-30 13:38] LABS: Anisocytosis 1+; Normal RBC Morphology No; Ovalocytes Slight
[2023-11-30 13:39] LABS: Acanthocytes Slight
[2023-11-30 13:41] LABS: Schistocytes Slight
--- NOTE | 2023-11-30 14:03 | CM ---
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 No Auth required for patient to return.
[facility] 2nd floor
Report [phone]

Plan; Patient to return to [facility] when stable, no Auth required.
[2023-11-30] MEDS: VANCOCIN 200 IV (15:08)
[2023-11-30 15:35] VITALS: BP 135/65
--- NOTE | 2023-11-30 18:53 | W.PN.UPDATE ---
Update Note
Progress Note Update
At bedside to evaluate patient. Informed by nursing that patient's right breast is red, and there were no other signs of lesions, ulcers, superficial infections on rest of patient's body. On arrival to room, patient resting comfortably in bed in no
acute distress. Physical exam performed with PCT as hl7 developer. Right breast inferiorly has similar firmness and dimpling of skin as prior, though now there is also poorly demarcated erythema present over majority of breast. There is also what
appears to be a possible surgical scar with retraction lateral to nipple. Skin remains dry and intact, no drainage. Unfortunately breast ultrasound is not able to be completed by the [facility] imaging center until Sunday. Concern for cellulitis vs
abscess vs inflammatory breast cancer. Discussed with Dr. Hernandez.
Returned to bedside with Dr. Brewer and Dr. Smith. Her daughter and granddaughter were also at bedside. Discussed my above concerns with family and plan for more definitive imaging on Sunday. Her family notes that her right breast has always
looked different, though they couldn't elaborate. They denied any erythema prior to admission. Performed bedside ultrasound and on my exam I did not note any obvious fluid collections on POCUS, so lower suspicion of abscess, though will need
additional breast imaging Sunday. Concerned by progression of erythema despite being on antibiotics. Again discussed with Dr. Hernandez, and relayed to ID. Continue to monitor clinically and imaging with ultrasound and mammogram on Sunday.
Otherwise patient is generally more confused than her baseline dementia, most likely due to unfamiliar surroundings and acute infection. She requires frequent reorientation and supervision by nurses today. She is now on 1:1 supervision (video was
disabled for physical exams). She does enjoy presence of her family.
[2023-11-30] MEDS: NEURONTIN 100 MG PO (21:20)
[2023-11-30] MEDS: LIPITOR 80 MG PO (21:20)
[2023-11-30 23:44] VITALS: BP 123/60
[2023-12-01] MEDS: MAXIPIME 1000 MG IV (05:27)
[2023-12-01] MEDS: SYNTHROID 150 MCG PO (05:27)
[2023-12-01] MEDS: STERILE WATER FOR INJECTION 10 ML IV (05:27)
[2023-12-01 07:24] LABS: Vancomycin Random 14.3 ug/ml
[2023-12-01 07:35] VITALS: BP 141/55
[2023-12-01 08:00] LABS: ALT (SGPT) 73 U/L (0-35); AST (SGOT) 79 U/L (14-36); Alkaline Phosphatase 78 U/L (38-126); Blood Urea Nitrogen 13 mg/dl (7-17); Calcium 8.8 mg/dl (8.4-10.2); Carbon Dioxide 23 mmol/L (22-30); Chloride 105 mmol/L (98-107); Estimated Creatinine Clearance 45 ml/min; Glucose 98 mg/dl (70-99); Potassium 4.1 mmol/L (3.5-5.1); Sodium 137 mmol/L (135-145); Total Bilirubin 1.2 mg/dl (0.2-1.3); Total Protein 5.8 g/dl (6.3-8.2); eGFR > 60.00
[2023-12-01] MEDS: FOLVITE 0.4 MG PO (08:00)
[2023-12-01] MEDS: FLAGYL 500 MG PO (08:00)
[2023-12-01] MEDS: NAMENDA 10 MG PO (08:00)
[2023-12-01] MEDS: ARICEPT 10 MG PO (08:00)
[2023-12-01] MEDS: DICLOFENAC 1% TOPICAL GEL 1 GRAM TOPICAL ×2 (08:01→20:34)
[2023-12-01] MEDS: VITAMIN B-12 500 MCG PO (08:01)
--- NOTE | 2023-12-01 08:17 | PHA.VAN.FU ---
Vancomycin Assessment / Plan
- Assessment
Renal Function: Stable
In the past 24 hrs, patient has been: Afebrile
Concomitant Antimicrobials: CEFEPIME, METRONIDAZOLE
- Assessment - Therapeutic Drug Monitoring
Random Level: 14.3
- Dosing Plan
Adjust Regimen to: 1000MG Q24H
- Monitoring Plan
No level(s) ordered at this time: CONSIDER AT [facility]
- Follow Up
Pharmacy will continue to follow.
Vancomycin Follow UP
- -
Patient Age: 83
Patient Sex: Female
Vancomycin Day #: 4
Indication: Other
Requesting Provider: Jonathan Roach
Pertinent Antimicrobial Allergies:
Penicillins - Unknown
Height / Weight:
Height 5 ft 6 in
Actual Weight 65.862 kg
- Vital Signs / Lab Results
Temp Pulse Resp BP Pulse Ox
98.1 F 66 18 141/55 92
12/01/23 07:35 12/01/23 07:35 12/01/23 07:35 12/01/23 07:35 12/01/23 07:35
Lab Results - Hematology
11/28/23 11/29/23 11/29/23
14:19 07:51 10:02
WBC 19.7 H 10.1 Cancelled
11/30/23
07:46
WBC 9.3
Lab Results - Chemistry
11/28/23 11/29/23 11/29/23
14:19 07:51 10:02
BUN 37 H 29 H Cancelled
Creatinine 1.4 H 1.0 Cancelled
Estimated Creat Clear 41 Cancelled
Albumin 3.7 3.2 L Cancelled
11/30/23 12/01/23
07:02 06:50
BUN 20 H 13
Creatinine 0.9 0.9
Estimated Creat Clear 45 45
Albumin 3.1 L 3.0 L
11/28/23 11/29/23
14:19 07:51
Lactic Acid 1.9 0.7
Microbiology Results
11/28/23 14:19 Urine Culture - Final
Urine NO GROWTH
11/28/23 15:32 Blood Culture - Preliminary
Blood/Venous Coagulase neg. staphylococcus
Gram Stain - Preliminary
11/28/23 15:28 Blood Culture - Preliminary
Blood/Venous Coagulase neg. staphylococcus
Gram Stain - Preliminary
11/29/23 00:56 MRSA Screen - Final
Nose No Methicillin Resistant Staphylococcus aureus isolated.
Therapeutic Drug Monitoring
Random Vancomycin 14.3 ug/ml 12/01/23 06:50
[2023-12-01 08:27] LABS: % Basophils 0.7 % (0-2); % Eosinophils 12.4 % (0-6); % Immature Granulocytes 0.5 % (0-0.5); % Lymphocytes 15.5 % (20.5-51.1); % Neutrophils 57.9 % (42.2-75.2); Absolute Basophils 0.1 10^3/uL (0-0.2); Absolute Eosinophils 1.1 10^3/uL (0-0.7); Absolute Immature Granulocytes 0.1 10^3/uL (0-0.05); Absolute Lymphocytes 1.4 10^3/uL (1.2-3.4); Absolute Monocytes 1.2 10^3/uL (0.1-0.6); Absolute Neutrophils 5.4 10^3/uL (1.4-6.5); Hematocrit 23.2 % (37.0-47.0); Hemoglobin 8.1 g/dL (12.0-16.0); Mean Corp Hgb Conc. 34.9 g/dL (33.0-37.0); Mean Corpuscular Hgb 35.7 pg (27.0-31.0); Mean Corpuscular Volume 102.2 fL (81.0-99.0); Mean Platelet Volume 10.9 fL (7.4-10.4); Nucleated Red Blood Cells % 0.2 %; Platelet Count 185 10^3/uL (130-400); Red Blood Cell Count 2.27 10^6/uL (4.20-5.40); Red Cell Dist. Width 16.8 % (11.5-14.5); White Blood Cell Count 9.2 10^3/uL (4.8-10.8)
[2023-12-01 09:05] LABS: Direct Bilirubin 0.4 mg/dl (0.0-0.4)
[2023-12-01] MEDS: VANCOCIN 200 IV (11:23)
--- NOTE | 2023-12-01 11:31 | W.PN.HOSP.TC ---
Today's Communication/Plan
-
Plan to narrow antibiotic spectrum today
Repeat blood cultures
Monitor clinically
Assessment / Plan
Assessment / Plan
#Coagulase-negative Staphylococcus bacteremia
#Suspected mastitis versus cancer recurrence of right breast
-Presented with fevers, leukocytosis, SIRS criteria positive
-Was started on broad-spectrum antibiotics for gram-negative/positive/anaerobic
-Blood cultures returned positive for coagulase-negative Staphylococcus in all bottles
-Source of this is unclear, suspect skin versus breast
-Leukocytosis has resolved on current antibiotic course
-ID consult pending
Plan
-Repeat blood cultures today, will follow-up results
-Plan to transition antibiotics to ceftriaxone alone versus penicillin agent
-Continue to trend temperature curve and CBC
-Planning for breast mammogram on Sunday
#Elevated LFTs
#Pancreatic ductal dilation versus cyst
-Unclear etiology, suspect LFTs may be related to sepsis alone
-Imaging on arrival did show suspected pancreatic duct dilation versus
-MRI of abdomen is pending for further assessment
-GI following
#Chronic macrocytic anemia
-Hemoglobin baseline near 8, possibly bone marrow etiology
-No signs of bleeding or bruising here
-Will continue to monitor CBC daily
#Hypothyroidism
-Home medication includes levothyroxine 150 mcg daily
-No signs of thyroid dysfunction at this
#Hypertension
-Home medications include diltiazem, Lasix, losartan (only first-line agent)
-Home regimen on hold, hemodynamics stable without receiving
-Blood pressure this morning was 123/60 mmHg, will continue to
#H/O urine retention/UTI
-Urinalysis on arrival was bland, unlikely source for infection
-Will continue to monitor her urinary output
#H/O CVA x3
#Dementia
-Suspect vascular dementia from her fairly frequent stroke history of
-Home medications include high intensity statin and memantine/donepezil; no antiplatelet agents or anticoagulants
DVT prophylaxis: SCDs
Diet: Full liquid
CODE STATUS: DNR
POA: Kim Perry, daughter
Anticipated Discharge: 24 - 48 hours
Subjective/Interval History
-
Date of Service: December 01, 2023
Seen and examined in her chair at the nursing station. Overnight she was placed onto video one-to-one for delirium/wandering, eventually had to be brought to the nurses station to be monitored closely
As of this morning AFVSS. She is sleeping comfortably in her chair at the nurses station
History limited by her dementia
Objective Data
-
Labs:
Laboratory Results
12/01/23 12/01/23
06:50 08:16
WBC 9.2
Hgb 8.1 L
Hct 23.2 L
Plt Count 185
Sodium 137
Potassium 4.1
Chloride 105
Carbon Dioxide 23
BUN 13
Creatinine 0.9
Glucose 98
Calcium 8.8
Total Bilirubin 1.2
AST 79 H
ALT 73 H
Alkaline Phosphatase 78
Vital Signs:
Vital Signs
Temp Pulse Resp BP Pulse Ox
98.1 F 66 18 141/55 92
12/01/23 07:35 12/01/23 07:35 12/01/23 07:35 12/01/23 07:35 12/01/23 07:35
I&O
11/30/23 12/01/23 12/02/23
06:59 06:59 06:59
Intake Total 825 / 825
Balance 825 / 825
Review of Systems
-
History Source: Patient
All other systems: Reviewed and negative
Physical Exam
-
General: Well Nourished, No Apparent Distress and Comfortable
HEENT: Normocephalic, Atraumatic, Moist Mucous Membranes and Anicteric
Respiratory: Clear to Auscultation and Non Labored Respirations; Negative Wheezes, Rales or Rhonchi
Cardiac: Regular Rhythm and S1/S2; Negative Murmur, Rub or Gallop
Breast: Mass/Lump (Right-sided, posterior areolar), Puckering and Skin Changes (Erythema of right breast); Negative Nipple Discharge
GI: Soft, Nontender, Nondistended and Normal Bowel Sounds
Musculoskeletal: No Clubbing, No Cyanosis and No Edema
Skin: Warm and Dry; Negative Rash
Neuro: AO x 3 (AAO x 0-1), Nonfocal/Grossly Intact and Central Nerve's Intact
Data Reviewed
-
Labs: Labs Reviewed by me
--- NOTE | 2023-12-01 11:44 | CON.ID ---
Consultation
-
Date/Time Consultation Requested: 11/30/2023 1853
Date/Time Consultation Performed: 12/01/2023 1122
Requesting Provider: Dr. Winston
Performing Provider: Dr. Thornton
Reason for Consultation: Right breast infection
Chief Complaint / Past History
History of Present Illness
Shawna Bolton is an 83-year-old female being evaluated at the request of Dr. Winston in regards to possible right breast cellulitis. History is obtained from chart review as the patient cannot provide any meaningful history to me given
underlying dementia and possible acute TME.
The patient has a remote history of breast cancer and presented to the ER on 11/28/2023 from
[facility] for evaluation of fever and reported abdominal pain. According to reviewed notes the patient had been complaining to the staff of the stoma discomfort and was refusing to eat. When checked, she was found to have a temperature of 101 degrees.
Family believes that her degree of encephalopathy is somewhat increased from her baseline dementia. Initial white count was found to be 19K, and she was started on empiric antibiotics. Yesterday she was found to have some right breast swelling,
and it was felt to be somewhat more erythematous in the area. Review of labs indicate white count quickly normalized, and without left shift.
Past History
Additional Past Medical History:
Hx breast cancer s/p lumpectomy
Seizure disorder
Hypothyroidism (Hx myxedema coma)
HTN
Urinary retention
Anemia
Dementia
Hx CVA
Additional Past Surgical History:
Lumpectomy (40 years ago)
Allergy History:
adhesive tape Allergy (Verified 11/28/23 17:12)
Unknown
diphenhydramine Allergy (Verified 11/28/23 17:12)
Unknown
Penicillins Allergy (Verified 11/28/23 17:12)
Unknown
furosemide [From Lasix] Adverse Reaction (Severe, Verified 11/28/23 17:12)
Hearing Loss
Medications Reviewed: Yes
Current Antibiotics:
Cefepime 1 g IV every 12 hours
Metronidazole 500 mg p.o. 3 times daily
Vancomycin
Social History
Tobacco: Non-Smoker
Alcohol: None
Drug: None
Living: [facility]
Employment: Retired
Family History
Family History: Unable to Obtain
Review of Systems
Vital Signs
Temp Pulse Resp BP Pulse Ox
98.1 F 66 18 141/55 92
12/01/23 07:35 12/01/23 07:35 12/01/23 07:35 12/01/23 07:35 12/01/23 07:35
Physical Exam
Physical Exam
Constitutional: Comfortable, Chronically Ill and Non-toxic
Eyes: No Conjunctival Hemorrhage and Sclera Anicteric
Oral: No Thrush and No Ulcers
Cardiovascular: S1/S2; Negative S3/S4
Pulmonary: Non Labored; Negative Wheezes, Rales or Rhonchi
Gastrointestinal: Soft and Non Distended
Extremities: Negative Edema, Cyanosis or Erythema
Skin: Other (left breast area with inferior edema/induration. Minimal erythema. No nipple discharge.)
Neurological: Other (Arousable.)
Psychological: Confused
Lab / Diagnostic Study Results
12/01/23 08:16
12/01/23 06:50
Abs Immat Gran (auto) 0.1 10^3/uL (0-0.05) H 12/01/23 08:16
Absolute Neuts (auto) 5.4 10^3/uL (1.4-6.5) 12/01/23 08:16
Absolute Lymphs (auto) 1.4 10^3/uL (1.2-3.4) 12/01/23 08:16
Absolute Monos (auto) 1.2 10^3/uL (0.1-0.6) H 12/01/23 08:16
Absolute Basos (auto) 0.1 10^3/uL (0-0.2) 12/01/23 08:16
Immature Gran % 0.5 % (0-0.5) 12/01/23 08:16
Neutrophils % 57.9 % (42.2-75.2) 12/01/23 08:16
Lymphocytes % 15.5 % (20.5-51.1) L 12/01/23 08:16
Monocytes % 13.0 % (1.7-9.3) H 12/01/23 08:16
Eosinophils % 12.4 % (0-6) H 12/01/23 08:16
Basophils % 0.7 % (0-2) 12/01/23 08:16
Lactic Acid 0.7 mmol/L (0.7-2.0) 11/29/23 07:51
Ur Squamous Epith Cells >30 /LPF (Few) 11/28/23 14:19
Microbiology Results
Micro:
11/28/23 15:28 Blood Culture - Preliminary
Blood/Venous Coagulase neg. staphylococcus
Gram Stain - Preliminary
11/28/23 15:32 Blood Culture - Preliminary
Blood/Venous Coagulase neg. staphylococcus
Gram Stain - Preliminary
11/28/23 14:19 Urine Culture - Final
Urine NO GROWTH
11/29/23 00:56 MRSA Screen - Final
Nose No Methicillin Resistant Staphylococcus aureus isolated.
Assessment / Plan
Bacteremia with coag negative staph (3 of 4 bottles)
- repeat blood cultures pending.
- Awaiting susceptibility data of currently positive cultures.
Right breast induration with history of prior breast cancer
- ?cellulitis ?recurrence of CA
Leukocytosis; improved.
Transaminitis
Seizure disorder
Hypothyroidism (Hx myxedema coma)
HTN
Urinary retention
Anemia
Dementia
Hx CVA
Recommendations
Continue with vancomycin. Monitor levels closely.
Discontinue further cefepime and metronidazole.
Check ESR and CRP.
Await repeat blood culture results.
Patient for mammography early next week
Will follow physical exam
Further recommendations as additional data is returned.
--- NOTE | 2023-12-01 15:11 | CM ---
Patient seen bedside.
patient LTC 2nd floor of [facility].
No Auth required for patient to return.
[facility] 2nd floor
Report [phone]

Plan; Patient to return to [facility] when stable, no Auth required.
[2023-12-01 15:40] VITALS: BP 153/62
[2023-12-01] MEDS: TYLENOL 325 MG PO (20:35)
[2023-12-01] MEDS: NEURONTIN 100 MG PO (20:36)
[2023-12-01] MEDS: LIPITOR 80 MG PO (20:36)
[2023-12-01 23:00] VITALS: BP 136/52
[2023-12-02] MEDS: VANCOCIN 200 IV (05:56)
[2023-12-02] MEDS: SYNTHROID 150 MCG PO (05:56)
[2023-12-02] MEDS: FLUSH (NSS) 2 FLUSH IV (05:57)
[2023-12-02 07:42] VITALS: BP 138/52
--- NOTE | 2023-12-02 07:45 | PHA.VAN.FU ---
Vancomycin Assessment / Plan
- Assessment
Renal Function: Stable
WBC's are: WNL
In the past 24 hrs, patient has been: Afebrile
- Dosing Plan
Continue: 1000MG Q24H
- Monitoring Plan
Peak Level: 12/03 @0830
Trough Level: 12/04 @0530
- Follow Up
Pharmacy will continue to follow.
Vancomycin Follow UP
- -
Patient Age: 83
Patient Sex: Female
Vancomycin Day #: 5
Indication: Other
Requesting Provider: Jonathan Roach
Pertinent Antimicrobial Allergies:
Penicillins - Unknown
Height / Weight:
Height 5 ft 6 in
Actual Weight 65.862 kg
- Vital Signs / Lab Results
Temp Pulse Resp BP Pulse Ox
98.1 F 62 20 136/52 93
12/01/23 23:00 12/01/23 23:00 12/01/23 23:00 12/01/23 23:00 12/01/23 23:00
Lab Results - Hematology
11/29/23 11/29/23 11/30/23
07:51 10:02 07:46
WBC 10.1 Cancelled 9.3
12/01/23
08:16
WBC 9.2
Lab Results - Chemistry
11/29/23 11/29/23 11/30/23
07:51 10:02 07:02
BUN 29 H Cancelled 20 H
Creatinine 1.0 Cancelled 0.9
Estimated Creat Clear 41 Cancelled 45
Albumin 3.2 L Cancelled 3.1 L
12/01/23
06:50
BUN 13
Creatinine 0.9
Estimated Creat Clear 45
Albumin 3.0 L
11/29/23
07:51
Lactic Acid 0.7
Microbiology Results
11/28/23 15:32 Blood Culture - Preliminary
Blood/Venous Coagulase neg. staphylococcus
Gram Stain - Preliminary
11/28/23 15:28 Blood Culture - Preliminary
Blood/Venous Coagulase neg. staphylococcus
Gram Stain - Preliminary
11/28/23 14:19 Urine Culture - Final
Urine NO GROWTH
11/29/23 00:56 MRSA Screen - Final
Nose No Methicillin Resistant Staphylococcus aureus isolated.
Therapeutic Drug Monitoring
Random Vancomycin 14.3 ug/ml 12/01/23 06:50
[2023-12-02 08:38] LABS: % Basophils 0.6 % (0-2); % Eosinophils 13.2 % (0-6); % Immature Granulocytes 0.7 % (0-0.5); % Lymphocytes 15.9 % (20.5-51.1); % Monocytes 9.4 % (1.7-9.3); % Neutrophils 60.2 % (42.2-75.2); Absolute Basophils 0.1 10^3/uL (0-0.2); Absolute Eosinophils 1.3 10^3/uL (0-0.7); Absolute Immature Granulocytes 0.1 10^3/uL (0-0.05); Absolute Lymphocytes 1.6 10^3/uL (1.2-3.4); Absolute Neutrophils 6.1 10^3/uL (1.4-6.5); Hematocrit 25.5 % (37.0-47.0); Hemoglobin 9.3 g/dL (12.0-16.0); Mean Corp Hgb Conc. 36.5 g/dL (33.0-37.0); Mean Corpuscular Hgb 37.5 pg (27.0-31.0); Mean Corpuscular Volume 102.8 fL (81.0-99.0); Mean Platelet Volume 10.5 fL (7.4-10.4); Nucleated Red Blood Cells % 0 %; Platelet Count 203 10^3/uL (130-400); Red Blood Cell Count 2.48 10^6/uL (4.20-5.40); Red Cell Dist. Width 16.1 % (11.5-14.5); White Blood Cell Count 10.1 10^3/uL (4.8-10.8)
[2023-12-02 09:09] LABS: Blood Urea Nitrogen 11 mg/dl (7-17); Calcium 8.7 mg/dl (8.4-10.2); Carbon Dioxide 23 mmol/L (22-30); Chloride 105 mmol/L (98-107); Estimated Creatinine Clearance 58 ml/min; Glucose 126 mg/dl (70-99); Potassium 3.7 mmol/L (3.5-5.1); Sodium 138 mmol/L (135-145); eGFR > 60.00
[2023-12-02] MEDS: DICLOFENAC 1% TOPICAL GEL 1 GRAM TOPICAL ×2 (09:52→20:22)
[2023-12-02] MEDS: ARICEPT 10 MG PO (09:54)
[2023-12-02] MEDS: FEOSOL 325 MG PO (09:54)
[2023-12-02] MEDS: VITAMIN B-12 500 MCG PO (09:54)
[2023-12-02] MEDS: FOLVITE 0.4 MG PO (09:55)
[2023-12-02] MEDS: NAMENDA 10 MG PO (09:55)
--- NOTE | 2023-12-02 10:00 | PTCARENOTE ---
Addendum entered by Dina Infante RN 12/02/23 14:15:
Patient sleeping, appears comfortable post Tylenol. Medsitter and bed alarm in place for patient safety. Troponin is 0.051. Will repeat EKG and trop AT 2PM. Will continue to monitor.
Original Note:
Patient grabbing chest and moaning, stating 'My heart hurts'. EKG and VSS preformed, notified. Troponin level drawn. Patient given PRN Tylenol.
[2023-12-02] MEDS: TYLENOL 325 MG PO (10:02)
[2023-12-02 10:40] LABS: Troponin I 0.051 ng/ml
--- NOTE | 2023-12-02 11:26 | W.PN.HOSP.TC ---
Addendum entered and electronically signed by George Hernandez DO 12/02/23 11:36:
#Elevated serum troponin
-Suspect type II demand ischemia in context of sepsis
-Did have chest pain earlier, elevated troponin; no ECG change however
-Currently hospitalized with gram-positive sepsis on vancomycin
-Will trend troponin with serial ECG
Original Note:
Today's Communication/Plan
-
Continue with IV vancomycin
Follow repeat cultures
Repeat troponin in the afternoon with ECG
Plan for mammogram/breast ultrasound tomorrow
Assessment / Plan
Assessment / Plan
#Coagulase-negative Staphylococcus bacteremia
#Suspected mastitis versus cancer recurrence of right breast
-Presented with fevers, leukocytosis, SIRS criteria positive
-Was started on broad-spectrum antibiotics for gram-negative/positive/anaerobic
-Blood cultures returned positive for coagulase-negative Staphylococcus in all bottles
-Leukocytosis has resolved on current antibiotic course; elevated ESR and CRP
-ID is following
Plan
-Continue with IV vancomycin, follow repeat cultures
-Continue to trend inflammatory markers, temperature, CBC
-Planning for breast mammogram on Sunday
#Elevated LFTs
#Pancreatic ductal dilation versus cyst
-Unclear etiology, suspect LFTs may be related to sepsis alone
-Imaging on arrival did show suspected pancreatic duct dilation versus
-Patient was unable to have abdomen MRI, cannot cooperate for the study
-GI following
#Chronic macrocytic anemia
-Hemoglobin baseline near 8-9, possibly bone marrow etiology like MDS
-No signs of bleeding or bruising and CBC has been relatively stable
-Will continue to monitor CBC daily
#Hypothyroidism
-Home medication includes levothyroxine 150 mcg daily
-No signs of thyroid dysfunction at this
#Hypertension
-Home medications include diltiazem, Lasix, losartan (only first-line agent)
-Home regimen on hold, hemodynamics stable without receiving
-Blood pressure this morning was 123/60 mmHg, will continue to
#H/O urine retention/UTI
-Urinalysis on arrival was bland, unlikely source for infection
-Will continue to monitor her urinary output
#H/O CVA x3
#Dementia
-Suspect vascular dementia from her fairly frequent stroke history of
-Home medications include high intensity statin and memantine/donepezil; no antiplatelet agents or anticoagulants
DVT prophylaxis: SCDs
Diet: Full liquid
CODE STATUS: DNR
POA: Kim Perry, daughter
Anticipated Discharge: 24 - 48 hours
Subjective/Interval History
-
Date of Service: December 02, 2023
Seen and examined in the chair by the nurses station. Overnight she continues to require one-to-one for wandering. No other acute events
As of this morning she was comfortable and eating breakfast. Denied any acute complaints though history limited by dementia.
Shortly after my assessment she complained of 'heart pain' that was transient in nature. ECG was completely unchanged, showing sinus bradycardia with first-degree AV block but no evidence of acute ST deviation or STEMI equivalents. Troponin was
0.05, will obtain 1 more troponin in the afternoon to trend. Low suspicion for ACS.
Objective Data
-
Labs:
Laboratory Results
12/02/23
08:17
WBC 10.1
Hgb 9.3 L
Hct 25.5 L
Plt Count 203
Sodium 138
Potassium 3.7
Chloride 105
Carbon Dioxide 23
BUN 11
Creatinine 0.7
Glucose 126 H
Calcium 8.7
Vital Signs:
Vital Signs
Temp Pulse Resp BP Pulse Ox
98.0 F 62 18 138/52 91
12/02/23 07:42 12/02/23 07:42 12/02/23 07:42 12/02/23 07:42 12/02/23 07:42
I&O
09/10/1612/02/23 12/03/23
06:59 06:59 06:59
Intake Total 825 / 825 1340 / 1340
Balance 825 / 825 1340 / 1340
Review of Systems
-
Unable to obtain full review of systems at this time due to: Dementia
Physical Exam
-
General: No Apparent Distress, Comfortable and Conversant
HEENT: Normocephalic, Atraumatic and Moist Mucous Membranes
Respiratory: Clear to Auscultation and Non Labored Respirations; Negative Wheezes, Rales or Rhonchi
Cardiac: Regular Rhythm and S1/S2; Negative Murmur, Rub, JVD or Gallop
Breast: Mass/Lump, Puckering and Other (Improving erythema of right breast)
GI: Soft, Nontender, Nondistended and Normal Bowel Sounds
Musculoskeletal: No Clubbing, No Cyanosis and No Edema
Skin: Warm and Dry; Negative Rash
Neuro: Awake, Alert, Oriented, Nonfocal/Grossly Intact and Central Nerve's Intact
Data Reviewed
-
Labs: Labs Reviewed by me and Discussed with Nurse
[2023-12-02 11:31] LABS: Erythrocyte Sed Rate 128 mm/hour (0-20)
--- NOTE | 2023-12-02 14:17 | PTCARENOTE ---
Patient setting off alarm attempting to get OOB. Assisted to [facility]. Troponin level drawn. EKG completed. Patient continues to report chest pain.
[2023-12-02 14:46] LABS: Troponin I 0.041 ng/ml
[2023-12-02 15:25] VITALS: BP 152/64
[2023-12-02] MEDS: NEURONTIN 100 MG PO (20:23)
[2023-12-02] MEDS: LIPITOR 80 MG PO (20:23)
[2023-12-02 23:30] VITALS: BP 147/52
[2023-12-03] MEDS: VANCOCIN 200 IV (05:32)
[2023-12-03] MEDS: SYNTHROID 150 MCG PO (05:33)
[2023-12-03 06:42] VITALS: BP 133/53
[2023-12-03 07:10] LABS: % Basophils 0.7 % (0-2); % Eosinophils 5.2 % (0-6); % Immature Granulocytes 1.5 % (0-0.5); % Lymphocytes 23.8 % (20.5-51.1); % Monocytes 11.8 % (1.7-9.3); Absolute Basophils 0.1 10^3/uL (0-0.2); Absolute Eosinophils 0.6 10^3/uL (0-0.7); Absolute Immature Granulocytes 0.2 10^3/uL (0-0.05); Absolute Lymphocytes 2.9 10^3/uL (1.2-3.4); Absolute Monocytes 1.4 10^3/uL (0.1-0.6); Hematocrit 22.8 % (37.0-47.0); Hemoglobin 8.2 g/dL (12.0-16.0); Mean Corpuscular Hgb 37.4 pg (27.0-31.0); Mean Corpuscular Volume 104.1 fL (81.0-99.0); Mean Platelet Volume 10.7 fL (7.4-10.4); Nucleated Red Blood Cells % 0.2 %; Platelet Count 201 10^3/uL (130-400); Red Blood Cell Count 2.19 10^6/uL (4.20-5.40); Red Cell Dist. Width 16.2 % (11.5-14.5); White Blood Cell Count 12.2 10^3/uL (4.8-10.8)
[2023-12-03 07:27] LABS: ALT (SGPT) 53 U/L (0-35); AST (SGOT) 60 U/L (14-36); Albumin 2.8 g/dl (3.5-5.0); Alkaline Phosphatase 71 U/L (38-126); Blood Urea Nitrogen 9 mg/dl (7-17); Calcium 8.6 mg/dl (8.4-10.2); Carbon Dioxide 25 mmol/L (22-30); Chloride 104 mmol/L (98-107); Direct Bilirubin 0.3 mg/dl (0.0-0.4); Estimated Creatinine Clearance 58 ml/min; Glucose 133 mg/dl (70-99); Potassium 3.6 mmol/L (3.5-5.1); Sodium 137 mmol/L (135-145); Total Bilirubin 1.1 mg/dl (0.2-1.3); Total Protein 5.4 g/dl (6.3-8.2); eGFR > 60.00
--- NOTE | 2023-12-03 07:39 | W.PN.HOSP.TC ---
Today's Communication/Plan
-
mammogram and breast ultrasound today
Assessment / Plan
Assessment / Plan
83yo F with PMH chronic anemia, dementia, CVAs, h/o urinary retention and UTIs, presented to ED from [facility] on 11/27 for poor oral intake and vague abdominal pain, and found to be febrile to 101 with WBC 19.7. UA, urine culture, blood culture x2
obtained in ED and started on empiric broad spectrum antibiotics. Chest xray neg and abd/pelvis CT did not identify source of infection. UA unremarkable, urine culture negative.
#Staphylococcus epidermitis bacteremia
#Suspected mastitis versus cancer of right breast
#Leukocytosis
- Tmax 101 @ 1410 11/27, Tlast 100.4 @ 0045 11/28, Tcurrent 98.3 @ 0642 12/02
- WBC 19.7 on admission --> leukocytosis previously resolved, now trending up--> 12.2 today
- Blood cultures (11/27): staph epidermidis in all bottles
- Blood cultures (11/30): no growth at 24h, final report pending
- Elevated ESR and CRP, continue to trend inflammatory markers
- Follow temperature trend, daily cbc
- ID following. On vancomycin, continue antibiotics per ID.
- Plan for mammogram and breast ultrasound today.
#Elevated serum troponin
- Suspect this is secondary to demand ischemia in context of sepsis
- Troponin downtrending (0.051 --> 0.041), no EKG changes
- No further episodes of chest pain
#Elevated LFTs
#Pancreatic ductal dilation versus cyst
- Unclear etiology, suspect LFTs may be related to sepsis alone
- CT abdomen/pelvis on admission showed possible pancreatic duct dilation versus pancreatic cyst
- Plan was to evaluate with MRI, but unable to complete as patient was not cooperative for study. Will defer at this time given that based on her blood cultures, do not suspect incidental pancreatic findings are contributing to current clinical
course.
- Given downtrending LFTs, can consider spacing out repeat CMPs
#Chronic macrocytic anemia
- Hgb on arrival 7.5 (baseline appears to be in 7-8s)
- S/p 1u pRBC 11/27, with improvement in hgb to 8.3
- Hbg this morning 8.2, overall stable. Do not suspect ongoing blood loss
- Continue trending CBC
- Avoid pharmaceutical vte ppx
- Consider transfusion if hgb < 7 or for concern of symptomatic anemia or acute blood loss
#Hypothyroidism
- Home medication includes levothyroxine 150 mcg daily
- TSH 1.22. No signs of thyroid dysfunction at this
#Hypertension
- Home meds (diltiazem, Lasix, losartan) held given low to normal BPs on admission.
- Hemodynamics stable without antihypertensives. BP this AM 133/53
- Continue to monitor BPs and will consider restarting home meds if appropriate
#H/O urine retention/UTI
- UA, urine culture as above
- Monitor I&Os. Continue bladder scan protocol, attempt trial of void prior to straight catheterization
- Abd/pel CT findings note slightly distended extra renal pelvis bilaterally, 7mm enhancing mass upper pole L kidney. Unlikely to be contributing to current presentation. Follow up in 6 months per radiology.
#H/O CVA x3
#Dementia
- Suspect vascular dementia given her history of multiple olmos
- Continue home memantine/donepezil and statin; not on antiplatelet agents or anticoagulants
Seizures- most recently 09/2022; not on medications, unknown etiology; seizure precautions
Ambulatory dysfunction- uses wheelchair at baseline, ambulatory for few steps with assistance per daughter
HLD- continue home atorvastatin
Chronic pain- continue acetaminophen prn, home gabapentin 100mg qhs, home topical diclofenac prn
Diverticulosis
Code status: DNR
DVT ppx: SCDs
Diet: Full liquid
POA: Kim Perry, daughter
Dispo planning: TBD
Anticipated Discharge: 24 - 48 hours
Subjective/Interval History
-
Date of Service: December 03, 2023
No acute events overnight. She has no complaints this morning. She says her knee feels better (after topical diclofenac).
Objective Data
-
Labs:
Laboratory Results
12/03/23
06:00
WBC 12.2 H
Hgb 8.2 L
Hct 22.8 L
Plt Count 201
Sodium 137
Potassium 3.6
Chloride 104
Carbon Dioxide 25
BUN 9
Creatinine 0.7
Glucose 133 H
Calcium 8.6
Total Bilirubin 1.1
AST 60 H
ALT 53 H
Alkaline Phosphatase 71
Microbiology
12/01/23 13:00 Blood Culture - Preliminary
Blood/Venous No Growth in 24 hours- Final report to follow
12/01/23 11:50 Blood Culture - Preliminary
Blood/Venous No Growth in 24 hours- Final report to follow
11/28/23 15:28 Blood Culture - Final
Blood/Venous Staphylococcus epidermidis
Gram Stain - Final
11/28/23 15:32 Blood Culture - Final
Blood/Venous Staphylococcus epidermidis
Gram Stain - Final
11/28/23 14:19 Urine Culture - Final
Urine NO GROWTH
11/29/23 00:56 MRSA Screen - Final
Nose No Methicillin Resistant Staphylococcus aureus isolated.
LAB Results
12/02/23 12/02/23
10:01 13:58
Troponin I 0.051 H* 0.041 H*
Vital Signs:
Vital Signs
Temp Pulse Resp BP Pulse Ox
98.3 F 65 18 133/53 92
12/03/23 06:42 12/03/23 06:42 12/03/23 06:42 12/03/23 06:42 12/03/23 06:42
I&O
12/02/23 12/03/2324
06:59 06:59 06:59
Intake Total 1340 / 1340 730 / 730 200 / 200
Balance 1340 / 1340 730 / 730 200 / 200
Review of Systems
-
Unable to obtain full review of systems at this time due to: Dementia
History Source: Patient
Physical Exam
-
General: Well Developed, No Apparent Distress and Comfortable
HEENT: Normocephalic and Atraumatic
Respiratory: Clear to Auscultation and Non Labored Respirations
Cardiac: Regular Rhythm, S1/S2 and Murmur (systolic murmur)
Breast: Skin Changes (R breast: nontender, erythema over majority of breast, area of firm indurated skin with dimpling on inferior aspect; surgical scar lateral to nipple)
GI: Soft, Nontender, Nondistended and Normal Bowel Sounds
Musculoskeletal: No Cyanosis and No Edema
Skin: Warm and Dry
Neuro: Awake, Alert, Nonfocal/Grossly Intact and Other (oriented to person, states she is in [facility], not oriented to time)
Psych: Calm, Confused and Apparent Dementia
Data Reviewed
-
Labs: Labs Reviewed by me and Discussed with Physician
[2023-12-03] MEDS: DICLOFENAC 1% TOPICAL GEL 1 GRAM TOPICAL ×2 (08:04→21:34)
[2023-12-03] MEDS: NAMENDA 10 MG PO (08:06)
[2023-12-03] MEDS: FOLVITE 0.4 MG PO (08:06)
[2023-12-03] MEDS: ARICEPT 10 MG PO (08:06)
[2023-12-03] MEDS: VITAMIN B-12 500 MCG PO (08:06)
[2023-12-03 09:24] LABS: Erythrocyte Sed Rate 62 mm/hour (0-20)
--- NOTE | 2023-12-03 12:18 | CM ---
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
Plan; Patient to return to 2nd floor LTC when stable.
[facility] 2nd floor
Report [phone]
--- NOTE | 2023-12-03 13:27 | W.PN.ID1 ---
Date of Service
Date of Service: December 03, 2023
Today's Communication
Narrow to cefazolin
Assessment / Plan
Bacteremia with Staph. epi. (3 of 4 bottles)
- repeat blood cultures pending but NGTD
- S. epi is methicillin susceptible.
Right breast induration with history of prior breast cancer
- ?cellulitis
Leukocytosis; improved.
Transaminitis
Seizure disorder
Hypothyroidism (Hx myxedema coma)
HTN
Urinary retention
Anemia
Dementia
Hx CVA
Recommendations
Narrow to cefazolin.
Await repeat blood culture results.
Mammography not indicative of malignancy recurrence.
Will follow physical exam
����������������������������������������������������������
Chief Complaint
-: Cellulitis and Bacteremia
Subjective / Review of Systems
Review of Systems: No Fever and No Chills
Vital Signs / Physical Exam
Vital Signs
Vital Signs
Temp Pulse Resp BP Pulse Ox
98.3 F 65 18 133/53 92
12/03/23 06:42 12/03/23 06:42 12/03/23 06:42 12/03/23 06:42 12/03/23 06:42
Physical Exam
Constitutional: No Acute Distress, Comfortable, Chronically Ill and Non-toxic
Eyes: No Conjunctival Hemorrhage and Sclera Anicteric
Cardiovascular: S1/S2; Negative S3/S4
Pulmonary: Clear; Negative Wheezes or Rales
Skin: Other (Right breast area with decreased induration and erythema (essentially resolved))
Neurological: Awake
Psychological: Confused
Objective Data
Lab Data
Lab Results
12/03/23 06:00
12/03/23 06:00
ESR 62 mm/hour (0-20) H 12/03/23 06:00
Estimated Creat Clear 58 ml/min 12/03/23 06:00
Lactic Acid 0.7 mmol/L (0.7-2.0) 11/29/23 07:51
Total Bilirubin 1.1 mg/dl (0.2-1.3) 12/03/23 06:00
AST 60 U/L (14-36) H 12/03/23 06:00
ALT 53 U/L (0-35) H 12/03/23 06:00
Alkaline Phosphatase 71 U/L (38-126) 12/03/23 06:00
C-Reactive Protein 66.40 mg/L (0.0-10.00) H 12/03/23 06:00
Most recent labs reviewed.
Micro Results:
12/01/23 13:00 Blood Culture - Preliminary
Blood/Venous No Growth in 48 hours- Final report to follow
12/01/23 11:50 Blood Culture - Preliminary
Blood/Venous No Growth in 48 hours- Final report to follow
11/28/23 15:28 Blood Culture - Final
Blood/Venous Staphylococcus epidermidis
Gram Stain - Final
11/28/23 15:32 Blood Culture - Final
Blood/Venous Staphylococcus epidermidis
Gram Stain - Final
11/28/23 14:19 Urine Culture - Final
Urine NO GROWTH
11/29/23 00:56 MRSA Screen - Final
Nose No Methicillin Resistant Staphylococcus aureus isolated.
Care Review
Plan reviewed with: Physician (Primary service)
[2023-12-03 15:46] VITALS: BP 160/63
[2023-12-03] MEDS: ANCEF 10 IV ×2 (15:55→21:34)
--- NOTE | 2023-12-03 17:27 | W.PN.UPDATE ---
Update Note
Progress Note Update
I personally performed a history and physical exam of the patient and discussed management with the resident. I reviewed the resident's note and agree with the documented findings and plan of care HPI/CC except changes in documentation
CVS: S1-S2 normal
Chest: CTA B/L
Abdomen: Soft, no right upper quadrant tenderness bowel sounds present
Extremities: No edema
Right breast with mild induration and redness
# Staph epidermidis that is sepsis
Ancef
Repeat cultures negative
Routine echo
# Right breast induration with history of previous breast cancer
Possible cellulitis
Leukocytosis improved
Will request Dr. Susan John to see the patient
# Transaminitis-no right upper quadrant tenderness
# Chronic macrocytic anemia
# Hypothyroidism-continue Synthroid
# Hypertension-continue Cardizem, Lasix, losartan
# history of urine retention-bladder scan as needed
# History of CVA
# History of dementia
# Hypoalbuminemia
# DVT prophylaxis-SCDs
# CODE STATUS-DNR
Part of this note was created using voice recognition system. Occasional wrong word or��sound alike� substitutions may have inadvertently occurred due to the inherent limitations of voice recognition software. If noted kindly bring it to my
attention for correction.
[2023-12-03] MEDS: LIPITOR 80 MG PO (21:34)
[2023-12-03] MEDS: NEURONTIN 100 MG PO (21:34)
[2023-12-03 23:26] VITALS: BP 138/50
[2023-12-04] MEDS: ANCEF 10 IV ×3 (05:15→21:28)
[2023-12-04] MEDS: SYNTHROID 150 MCG PO (05:15)
[2023-12-04 07:27] VITALS: BP 150/55
[2023-12-04] MEDS: VITAMIN B-12 500 MCG PO (08:03)
[2023-12-04] MEDS: FOLVITE 0.4 MG PO (08:03)
[2023-12-04] MEDS: ARICEPT 10 MG PO (08:03)
[2023-12-04] MEDS: FEOSOL 325 MG PO (08:03)
[2023-12-04] MEDS: NAMENDA 10 MG PO (08:03)
[2023-12-04] MEDS: DICLOFENAC 1% TOPICAL GEL 1 GRAM TOPICAL ×2 (08:04→20:08)
[2023-12-04 08:20] LABS: Hematocrit 23.7 % (37.0-47.0); Hemoglobin 8.5 g/dL (12.0-16.0); Mean Corp Hgb Conc. 35.9 g/dL (33.0-37.0); Mean Corpuscular Hgb 37.3 pg (27.0-31.0); Mean Corpuscular Volume 103.9 fL (81.0-99.0); Mean Platelet Volume 10.2 fL (7.4-10.4); Platelet Count 225 10^3/uL (130-400); Red Blood Cell Count 2.28 10^6/uL (4.20-5.40); Red Cell Dist. Width 16.2 % (11.5-14.5); White Blood Cell Count 12.1 10^3/uL (4.8-10.8)
[2023-12-04 08:25] LABS: Erythrocyte Sed Rate 98 mm/hour (0-20)
[2023-12-04 08:36] LABS: Blood Urea Nitrogen 9 mg/dl (7-17); Calcium 8.9 mg/dl (8.4-10.2); Carbon Dioxide 28 mmol/L (22-30); Chloride 105 mmol/L (98-107); Estimated Creatinine Clearance 51 ml/min; Glucose 91 mg/dl (70-99); Potassium 3.6 mmol/L (3.5-5.1); Sodium 140 mmol/L (135-145); eGFR > 60.00
--- NOTE | 2023-12-04 08:49 | W.PN.HOSP.TC ---
Addendum entered and electronically signed by Marie Sun MD 12/04/23 14:08:
I personally performed a history and physical exam of the patient and discussed management with the resident. I reviewed the resident's note and agree with the documented findings and plan of care HPI/CC except changes in documentation
Right breast with mild induration and redness better today
# Staph epidermidis that is sepsis
Ancef
Repeat cultures negative
Echo without any vegetations
# Right breast induration with history of previous breast cancer
Treat as cellulitis
No palpable mass. Redness improved
Appreciate Dr. Susan John evaluating the patient
No surgical indications
Follow clinically as outpatient
# Transaminitis-no right upper quadrant tenderness. CAT scan showed no abnormalities with ductal dilatation. Patient is status post cholecystectomy in the past.
# Chronic macrocytic anemia
# Hypothyroidism-continue Synthroid
# Hypertension-continue Cardizem, Lasix, losartan
# history of urine retention-bladder scan as needed
# History of CVA
# History of dementia
# Hypoalbuminemia
# DVT prophylaxis-add Lovenox
# CODE STATUS-DNR
Spoke to patient's daughter and updated.
? Discharge tomorrow
Part of this note was created using voice recognition system. Occasional wrong word or��sound alike� substitutions may have inadvertently occurred due to the inherent limitations of voice recognition software. If noted kindly bring it to my
attention for correction.
Original Note:
Today's Communication/Plan
-
echo, breast surgery eval, continue antibiotics per ID
Assessment / Plan
Assessment / Plan
83yo F with PMH chronic anemia, dementia, CVAs, h/o urinary retention and UTIs, presented to ED from [facility] on 11/27 for poor oral intake and vague abdominal pain, and found to be febrile to 101 with WBC 19.7. UA, urine culture, blood culture x2
obtained in ED and started on empiric broad spectrum antibiotics. Chest xray neg and abd/pelvis CT did not identify source of infection. UA unremarkable, urine culture negative.
#Staphylococcus epidermitis bacteremia
#Leukocytosis
- Tmax 101 @ 1410 11/27, Tlast 100.4 @ 0045 11/28, Tcurrent 98.3 @ 0727 12/03
- WBC 19.7 on admission --> leukocytosis previously resolved, then trended up slightly
- WBC 12.1 today, stable from yesterday
- Blood cultures (11/27): staph epidermidis in all bottles
- Blood cultures (11/30): no growth at 48h, final report pending
- Elevated ESR and CRP, continue to trend inflammatory markers
- Follow temperature trend, daily cbc
- ID following. On cefazolin, continue antibiotics per ID.
- Will check echo to evaluate for endocarditis
#Suspected mastitis versus cancer of right breast
- Mammogram and breast ultrasound 12/02 negative for mass, abscess, intradermal lesion. Suspect skin thickening on physical exam and CT is secondary to radiation
- Consult breast surgery
- Will update family with results this afternoon
#Elevated serum troponin
- Suspect this was secondary to demand ischemia in context of sepsis
- Troponin downtrended (0.051 --> 0.041), no EKG changes
- No further episodes of chest pain
#Elevated LFTs
#Pancreatic ductal dilation versus cyst
- Unclear etiology, suspect LFTs may be related to sepsis alone
- CT abdomen/pelvis on admission showed possible pancreatic duct dilation versus pancreatic cyst
- Plan was to evaluate with MRI, but unable to complete as patient was not cooperative for study. Will defer at this time given that based on her blood cultures, do not suspect incidental pancreatic findings are contributing to current clinical
course.
- Repeat LFTs 1 week
#Chronic macrocytic anemia
- Hgb on arrival 7.5 (baseline appears to be in 7-8s)
- S/p 1u pRBC 11/27, with improvement in hgb to 8.3
- Hbg this morning 8.5, overall stable. Do not suspect ongoing blood loss
- Continue trending CBC
- Avoid pharmaceutical vte ppx
- Consider transfusion if hgb < 7 or for concern of symptomatic anemia or acute blood loss
#Hypothyroidism
- Home medication includes levothyroxine 150 mcg daily
- TSH 1.22. No signs of thyroid dysfunction at this
#Hypertension
- Home meds (diltiazem, Lasix, losartan) held given low to normal BPs on admission.
- Hemodynamics stable without antihypertensives. BP this AM 150/55
- Restart home losartan. Continue to monitor BPs and will consider restarting additional home meds if appropriate
#H/O urine retention/UTI
- UA, urine culture as above
- Monitor I&Os. Continue bladder scan protocol, attempt trial of void prior to straight catheterization
- Abd/pel CT findings note slightly distended extra renal pelvis bilaterally, 7mm enhancing mass upper pole L kidney. Unlikely to be contributing to current presentation. Follow up in 6 months per radiology.
#H/O CVA x3
#Dementia
- Suspect vascular dementia given her history of multiple olmos
- Continue home memantine/donepezil and statin; not on antiplatelet agents or anticoagulants
Seizures- most recently 09/2022; not on medications, unknown etiology; seizure precautions
Ambulatory dysfunction- uses wheelchair at baseline, ambulatory for few steps with assistance per daughter
HLD- continue home atorvastatin
Chronic pain- continue acetaminophen prn, home gabapentin 100mg qhs, home topical diclofenac prn
Diverticulosis
Code status: DNR
DVT ppx: SCDs
Diet: Regular
POA: Kim Perry, daughter
Dispo planning: TBD
Anticipated Discharge: 24 - 48 hours
Subjective/Interval History
-
Date of Service: December 04, 2023
No acute events overnight. She has no complaints this morning, other than the interruption to her breakfast. She is a poor historian due to apparent dementia. She denies lightheadedness, dizziness, chest pain, shortness of breath, abdominal pain,
nausea, vomiting. She denies breast pain, discomfort, itching. Her knees feel 'okay,' not in pain. She is tolerating PO regular diet, requires assistance with meals, and nonambulatory at baseline. Last bowel movement was yesterday morning and was
solid, brown, and large. No black or bloody stools.
Objective Data
-
Labs:
Laboratory Results
12/04/23
07:36
WBC 12.1 H
Hgb 8.5 L
Hct 23.7 L
Plt Count 225
Sodium 140
Potassium 3.6
Chloride 105
Carbon Dioxide 28
BUN 9
Creatinine 0.8
Glucose 91
Calcium 8.9
Vital Signs:
Vital Signs
Temp Pulse Resp BP Pulse Ox
98.3 F 65 18 150/55 96
12/04/23 07:27 12/04/23 07:27 12/04/23 07:27 12/04/23 07:27 12/04/23 07:27
I&O
12/03/23 12/04/23 12/05/23
06:59 06:59 06:59
Intake Total 730 / 730 800 / 800
Balance 730 / 730 800 / 800
Review of Systems
-
Unable to obtain full review of systems at this time due to: Dementia
History Source: Patient
All other systems: Reviewed and negative
Physical Exam
-
General: Well Developed, No Apparent Distress and Comfortable
HEENT: Normocephalic and Atraumatic
Respiratory: Clear to Auscultation (anterior lung werner) and Non Labored Respirations
Cardiac: Regular Rhythm and S1/S2
Breast: Skin Changes (R breast: nontender, erythema over majority of breast, area of firm indurated skin with dimpling on inferior aspect; surgical scar lateral to nipple)
GI: Soft, Nontender, Nondistended and Normal Bowel Sounds
Musculoskeletal: No Cyanosis and No Edema
Skin: Warm and Dry
Neuro: Awake, Alert, Nonfocal/Grossly Intact and Other (oriented to person, states she is in [facility], not oriented to time)
Psych: Calm, Confused and Apparent Dementia
Data Reviewed
-
Diagnostic Radiology: Report Reviewed by me and Discussed with Physician
CT Scan: Image personally visualized and interpreted, Report Reviewed by me and Discussed with Physician
Ultrasound: Report Reviewed by me and Discussed with Physician
Labs: Labs Reviewed by me and Discussed with Physician
[2023-12-04 11:44] LABS: % Basophils 0.8 % (0-2); % Eosinophils 10.2 % (0-6); % Immature Granulocytes 2.2 % (0-0.5); % Lymphocytes 24.1 % (20.5-51.1); % Monocytes 9.8 % (1.7-9.3); % Neutrophils 52.9 % (42.2-75.2)
[2023-12-04 11:45] LABS: Absolute Basophils 0.1 10^3/uL (0-0.2); Absolute Eosinophils 1.2 10^3/uL (0-0.7); Absolute Immature Granulocytes 0.3 10^3/uL (0-0.05); Absolute Lymphocytes 2.9 10^3/uL (1.2-3.4); Absolute Monocytes 1.2 10^3/uL (0.1-0.6); Absolute Neutrophils 6.4 10^3/uL (1.4-6.5); Nucleated Red Blood Cells % 0.2 %
--- NOTE | 2023-12-04 12:28 | CM ---
Addendum entered by Nirali Drake 12/04/23 15:57:
Per physician patient is for possible discharge tomorrow to [facility]
Original Note:
[facility] when stable.
[facility] 2nd floor
Report [phone]
--- NOTE | 2023-12-04 13:17 | CON.MD ---
Consultation - Medical
-
Breast Surgery-asked to see pt regarding remote history of breast cancer and erythema of involved right breast. The patient is not able to provide any history and was found slumped over in her chair, head on tray. Remoted sitter implemented. I spoke
with her daughter who has very little knowledge about her mom's breast treatment. The patient's mother had post-menopausal breast cancer and the daughter reports that her mother had breast cancer treated after age 50. She always reported that it was
found 'early' and the daughter isn't even sure if the patient had radiation therapy.
Exam today finds pt unoriented, beligerent (I want to go to bed).
Breast exam shows no evidence of palpable adenopathy or mass. No erythema currently and skin is intact.
By history it sounds as if the pt had cellulitis, but it has resolved. She is not an operative candidate therefore, I would only follow clinically and not recommend any imaging.
Please call again if erythema returns.
[2023-12-04] MEDS: COZAAR 50 MG PO (14:04)
[2023-12-04] MEDS: MIRALAX 1 GRAMS PO (14:05)
--- NOTE | 2023-12-04 14:19 | W.PN.ID1 ---
Date of Service
Date of Service: December 04, 2023
Today's Communication
Continue antibiotics. See below�
Assessment / Plan
Bacteremia with Staph. epi. (3 of 4 bottles)
- repeat blood cultures pending but NGTD
- S. epi is methicillin susceptible.
Right breast induration with history of prior breast cancer
- ?cellulitis
- improved
Leukocytosis; improved.
Transaminitis
Seizure disorder
Hypothyroidism (Hx myxedema coma)
HTN
Urinary retention
Anemia
Dementia
Hx CVA
Recommendations
Continue Ancef.
Repeat blood cultures negative x 72 hours.
Mammography not indicative of malignancy recurrence.
If ECHO negative, can transition to Keflex 500 mg 4 times daily for an additional 5 days.
May need trending of inflammatory markers following discharge. Additionally, repeat blood cultures could be considered in 2 weeks to assure no ongoing bacteremia (staph epi is unlikely etiology for endocarditis)
����������������������������������������������������������
Chief Complaint
-: Cellulitis and Bacteremia
Subjective / Review of Systems
Patient seen and examined. Remains quite confused.
Vital Signs / Physical Exam
Vital Signs
Vital Signs
Temp Pulse Resp BP Pulse Ox
98.3 F 65 18 150/55 96
12/04/23 07:27 12/04/23 07:27 12/04/23 07:27 12/04/23 07:27 12/04/23 07:27
Physical Exam
Constitutional: No Acute Distress, Comfortable, Chronically Ill and Non-toxic
Eyes: Sclera Anicteric
Cardiovascular: S3/S4
Pulmonary: Clear and Non Labored
Gastrointestinal: Non Distended
Skin: Other
Neurological: Awake
Psychological: Confused
Objective Data
Lab Data
Lab Results
12/04/23 07:36
12/04/23 07:36
ESR 98 mm/hour (0-20) H 12/04/23 07:36
Estimated Creat Clear 51 ml/min 12/04/23 07:36
Lactic Acid 0.7 mmol/L (0.7-2.0) 11/29/23 07:51
Total Bilirubin 1.1 mg/dl (0.2-1.3) 12/03/23 06:00
AST 60 U/L (14-36) H 12/03/23 06:00
ALT 53 U/L (0-35) H 12/03/23 06:00
Alkaline Phosphatase 71 U/L (38-126) 12/03/23 06:00
C-Reactive Protein 56.20 mg/L (0.0-10.00) H 12/04/23 07:36
Most recent labs reviewed.
Micro Results:
12/01/23 13:00 Blood Culture - Preliminary
Blood/Venous No Growth in 72 hours- Final report to follow
12/01/23 11:50 Blood Culture - Preliminary
Blood/Venous No Growth in 72 hours- Final report to follow
11/28/23 15:28 Blood Culture - Final
Blood/Venous Staphylococcus epidermidis
Gram Stain - Final
11/28/23 15:32 Blood Culture - Final
Blood/Venous Staphylococcus epidermidis
Gram Stain - Final
11/28/23 14:19 Urine Culture - Final
Urine NO GROWTH
11/29/23 00:56 MRSA Screen - Final
Nose No Methicillin Resistant Staphylococcus aureus isolated.
[2023-12-04 15:30] VITALS: BP 128/79
[2023-12-04] MEDS: SENOKOT 8.6 MG PO (16:00)
[2023-12-04] MEDS: NEURONTIN 100 MG PO (21:28)
[2023-12-04] MEDS: LIPITOR 80 MG PO (21:28)
[2023-12-04 23:17] VITALS: BP 134/55
[2023-12-05] MEDS: SYNTHROID 150 MCG PO (05:19)
[2023-12-05] MEDS: ANCEF 10 IV ×2 (05:19→13:27)
[2023-12-05 07:33] VITALS: BP 109/70
[2023-12-05] MEDS: MIRALAX 1 GRAMS PO (07:52)
[2023-12-05] MEDS: DICLOFENAC 1% TOPICAL GEL 1 GRAM TOPICAL (07:54)
[2023-12-05] MEDS: FOLVITE 0.4 MG PO (07:55)
[2023-12-05] MEDS: COZAAR 50 MG PO (07:57)
[2023-12-05] MEDS: VITAMIN B-12 500 MCG PO (07:57)
[2023-12-05] MEDS: ARICEPT 10 MG PO (07:57)
[2023-12-05] MEDS: NAMENDA 10 MG PO (07:58)
--- NOTE | 2023-12-05 09:35 | W.PN.HOSP.TC ---
Addendum entered and electronically signed by Marie Sun MD 12/05/23 16:14:
I personally performed a history and physical exam of the patient and discussed management with the resident. I reviewed the resident's note and agree with the documented findings and plan of care HPI/CC.
Patient was seen with daughter at bedside
Exam-right breast better
Patient is pleasant
Continue with discharge plan as outlined
Complete antibiotics
If she has fevers as outpatient repeat blood cultures
Repeat cultures here have been negative
Discussed with social media intern
Discussed with nursing
Discussed with daughter
Discharge coordination time more than 35 minutes
Original Note:
Today's Communication/Plan
-
Discharge to [facility] today
Assessment / Plan
Assessment / Plan
83yo F with PMH chronic anemia, dementia, CVAs, h/o urinary retention and UTIs, presented to ED from [facility] on 11/27 for poor oral intake and vague abdominal pain, and found to be febrile to 101 with WBC 19.7. UA, urine culture, blood culture x2
obtained in ED and started on empiric broad spectrum antibiotics. Chest xray neg and abd/pelvis CT did not identify source of infection. UA unremarkable, urine culture negative.
#Staphylococcus epidermitis bacteremia
#Leukocytosis
- Tmax 101 @ 1410 11/27, Tlast 100.4 @ 0045 11/28, Tcurrent 98.4 @ 0757 12/04
- WBC 19.7 on admission --> leukocytosis previously resolved --> now stable at 12.1
- Blood cultures (11/27): staph epidermidis in all bottles
- Blood cultures (11/30): no growth in 4 days, final report pending
- Elevated ESR and CRP on admission --> downtrended
- Echo negative for valve vegetations.
- Has been on cefazolin IV. ID following. Will transition to PO keflex 500mg 4 times per day for 5 additional days, and can consider repeat blood cultures in 2 weeks per ID.
- Given echo and negative repeat blood cultures at 4 days, do not suspect endocarditis
- Additional set of repeat blood cultures unlikely to change advisor unless she become febrile or ill again. Would obtain blood cultures as needed, if clinically indicated
- Repeat CBC, ESR, CRP 1 week after discharge
#Suspected mastitis versus cancer of right breast
- Mammogram and breast ultrasound 12/02 negative for mass, abscess, intradermal lesion. Suspect skin thickening on physical exam and CT is secondary to radiation
- S/p breast surgery consultation, appreciate evaluation. No evidence of malignancy, no changes in management recommended. Follow clinically.
- Erythema of R breast improving
#Elevated serum troponin
- Suspect this was secondary to demand ischemia in context of sepsis
- Troponin downtrended (0.051 --> 0.041), no EKG changes
- No further episodes of chest pain
#Elevated LFTs
#Pancreatic ductal dilation versus cyst
- Unclear etiology, suspect LFTs may be related to sepsis alone
- CT abdomen/pelvis on admission showed possible pancreatic duct dilation versus pancreatic cyst
- Plan was to evaluate with MRI, but unable to complete as patient was not cooperative for study. Will defer at this time given that based on her blood cultures, do not suspect incidental pancreatic findings are contributing to current clinical
course.
- Repeat LFTs 1 week after discharge
#Chronic macrocytic anemia
- Hgb on arrival 7.5 (baseline appears to be in 7-8s)
- S/p 1u pRBC 11/27, with improvement in hgb to 8.3
- Hbg yesterday 8.5, overall stable. Do not suspect ongoing blood loss
- Avoid pharmaceutical vte ppx
- Consider transfusion if hgb < 7 or for concern of symptomatic anemia or acute blood loss
#Hypothyroidism
- Home medication includes levothyroxine 150 mcg daily
- TSH 1.22. No signs of thyroid dysfunction at this
#Hypertension
- Home meds (diltiazem, Lasix, losartan) held given low to normal BPs on admission.
- BP this AM 109/70
- Continue losartan with hold parameters
#H/O urine retention/UTI
- UA, urine culture as above
- Monitor I&Os. Continue bladder scan protocol, attempt trial of void prior to straight catheterization
- Abd/pel CT findings note slightly distended extra renal pelvis bilaterally, 7mm enhancing mass upper pole L kidney. Unlikely to be contributing to current presentation. Follow up in 6 months per radiology.
#H/O CVA x3
#Dementia
- Suspect vascular dementia given her history of multiple lomos
- Continue home memantine/donepezil and statin; not on antiplatelet agents or anticoagulants
Seizures- most recently 09/2022; not on medications, unknown etiology; seizure precautions
Ambulatory dysfunction- uses wheelchair at baseline, ambulatory for few steps with assistance per daughter
HLD- continue home atorvastatin
Chronic pain- continue acetaminophen prn, home gabapentin 100mg qhs, home topical diclofenac prn
Diverticulosis
Code status: DNR
DVT ppx: SCDs
Diet: Regular
POA: Kim Perry, daughter
Dispo planning: [facility] today
Anticipated Discharge: Today
Subjective/Interval History
-
Date of Service: December 05, 2023
No acute events overnight. She has no complaints this morning besides being in the hospital. When I ask if she would like to go back to [employer], she says yes. She is a poor historian due to apparent dementia. She is tolerating PO diet, no vomiting.
No black or bloody stools.
Objective Data
-
Labs:
Microbiology Results - Entire Visit
12/01/23 11:50 Blood/Venous Blood Culture - Preliminary
No Growth in 4 days- Final report to follow
12/01/23 13:00 Blood/Venous Blood Culture - Preliminary
No Growth in 72 hours- Final report to follow
11/28/23 15:28 Blood/Venous Blood Culture - Final
Staphylococcus epidermidis
11/28/23 15:28 Blood/Venous Gram Stain - Final
11/28/23 15:32 Blood/Venous Blood Culture - Final
Staphylococcus epidermidis
11/28/23 15:32 Blood/Venous Gram Stain - Final
11/28/23 14:19 Urine Urine Culture - Final
NO GROWTH
11/29/23 00:56 Nose MRSA Screen - Final
No Methicillin Resistant Staphylococcus aureus isolated.
Vital Signs:
Vital Signs
Temp Pulse Resp BP Pulse Ox
98.4 F 52 18 109/70 91
12/05/23 07:33 12/05/23 07:33 12/05/23 07:33 12/05/23 07:57 12/05/23 07:33
I&O
12/04/23 12/05/23 12/06/23
06:59 06:59 06:59
Intake Total 800 / 800 620 / 620
Balance 800 / 800 620 / 620
Review of Systems
-
Unable to obtain full review of systems at this time due to: Dementia
Physical Exam
-
General: Well Developed, No Apparent Distress and Comfortable
HEENT: Normocephalic and Atraumatic
Respiratory: Clear to Auscultation (anterior lung werner) and Non Labored Respirations
Cardiac: Regular Rhythm and S1/S2
Breast: Skin Changes (R breast: nontender, erythema improving, area of firm indurated skin with dimpling on inferior aspect; surgical scar lateral to nipple)
GI: Soft, Nontender, Nondistended and Normal Bowel Sounds
Musculoskeletal: No Cyanosis and No Edema
Skin: Warm and Dry
Neuro: Awake, Alert and Nonfocal/Grossly Intact
Psych: Calm, Confused and Apparent Dementia
[2023-12-05 11:25] VITALS: BP 109/70; PULSE 52
--- NOTE | 2023-12-05 14:56 | CM ---
Chart reviewed and patient is for possible discharge, plan is 2nd floor at [facility], per wound care nurse, patient would benefit from air overlay to bed, Maryse Harris in admissions made aware.
Plan; Patient to transfer to [facility] 2nd floor when stable.
[facility] 2nd floor
Report [phone]
[2023-12-05 15:03] VITALS: BP 164/70
--- NOTE | 2023-12-05 15:32 | W.PN.ID1 ---
Date of Service
Date of Service: December 05, 2023
Today's Communication
Transition to cephalexin.
Assessment / Plan
Bacteremia with Staph. epi. (3 of 4 bottles)
- repeat blood cultures NGTD
- S. epi is methicillin susceptible.
Right breast induration with history of prior breast cancer
- ?cellulitis
- improved
Leukocytosis; improved.
Transaminitis
Seizure disorder
Hypothyroidism (Hx myxedema coma)
HTN
Urinary retention
Anemia
Dementia
Hx CVA
Recommendations
Continue Ancef.
Repeat blood cultures negative x 4 days
Mammography not indicative of malignancy recurrence.
ECHO negative; can transition to Keflex 500 mg 4 times daily for an additional 4 days.
May need trending of inflammatory markers following discharge. Additionally, repeat blood cultures could be considered in 2 weeks to assure no ongoing bacteremia (staph epi is unlikely etiology for endocarditis)
����������������������������������������������������������
Chief Complaint
-: Cellulitis and Bacteremia
Subjective / Review of Systems
Patient seen and examined. Denies significant pain.
Review of Systems: No Fever
Vital Signs / Physical Exam
Vital Signs
Vital Signs
Temp Pulse Resp BP Pulse Ox
98.0 F 67 16 164/70 92
12/05/23 15:03 12/05/23 15:03 12/05/23 15:03 12/05/23 15:03 12/05/23 15:03
Physical Exam
Constitutional: No Acute Distress, Comfortable, Chronically Ill and Non-toxic
Eyes: Sclera Anicteric
Cardiovascular: S3/S4
Pulmonary: Clear and Non Labored
Gastrointestinal: Non Distended
Skin: Other
Neurological: Awake
Psychological: Confused
Objective Data
Lab Data
Lab Results
12/04/23 07:36
12/04/23 07:36
ESR 98 mm/hour (0-20) H 12/04/23 07:36
Estimated Creat Clear 51 ml/min 12/04/23 07:36
Lactic Acid 0.7 mmol/L (0.7-2.0) 11/29/23 07:51
Total Bilirubin 1.1 mg/dl (0.2-1.3) 12/03/23 06:00
AST 60 U/L (14-36) H 12/03/23 06:00
ALT 53 U/L (0-35) H 12/03/23 06:00
Alkaline Phosphatase 71 U/L (38-126) 12/03/23 06:00
C-Reactive Protein 56.20 mg/L (0.0-10.00) H 12/04/23 07:36
Most recent labs reviewed.
Micro Results:
12/01/23 13:00 Blood Culture - Preliminary
Blood/Venous No Growth in 4 days- Final report to follow
12/01/23 11:50 Blood Culture - Preliminary
Blood/Venous No Growth in 4 days- Final report to follow
11/28/23 15:28 Blood Culture - Final
Blood/Venous Staphylococcus epidermidis
Gram Stain - Final
11/28/23 15:32 Blood Culture - Final
Blood/Venous Staphylococcus epidermidis
Gram Stain - Final
11/28/23 14:19 Urine Culture - Final
Urine NO GROWTH
11/29/23 00:56 MRSA Screen - Final
Nose No Methicillin Resistant Staphylococcus aureus isolated.
Care Review
Plan reviewed with: Physician (Resident)
--- NOTE | 2023-12-05 18:25 | W.DCSUMMARY ---
Discharge Summary
Discharge Data
Date of Admission: 11/28/23
Date of Discharge: 12/05/23
-
Pending Results: Yes
Additional Pending Results:
Blood cultures 12/01/23: No growth in 4 days. Final report to follow.
Hospital Course
Discharging Physician : Dr. Winston, Dr. Sun
Disposition : [facility]
Primary care physician : Gagan Allison
Principal Discharge diagnosis : Bacteremia staph epidermidis, mastitis, leukocytosis, elevated serum troponin, pancreatic duct dilation vs cyst
Chronic Discharge diagnosis : HTN, dementia, chronic anemia, hypothyroidism, h/o seizures, h/o urinary retention and UTIs, h/o CVA, h/o right sided breast cancer s/p lumpectomy and presumed radiation
Hospital Course : Presented to ED for poor oral intake and vague abdominal pain. On arrival to ED, she was febrile with leukocytosis. Blood and urine cultures obtained in ED and started on broad spectrum antibiotics. Source of infection was unclear
on admission. Abdomen/pelvic CT were unrevealing in terms of infection source, though did have incidental findings below. Her hgb was 7.5 on arrival, repeated to 6.9, and she was transfused with 1 unit pRBC. Her urinalysis was bland and urine
culture negative. Blood culture grew staph epidermidis in 3 of 4 bottles and ID was following. Her right breast was noted to have firm indurated skin, and the right breast became erythematous on 11/29. Breast ultrasound and mammogram were obtained,
and breast surgery was consulted. Right breast has chronic skin changes consistent with presumed radiation, no signs of cancer recurrence, no abscess. Her echo was negative for endocarditis, and her repeat blood cultures showed no growth at day 4.
Of note earlier in admission she had troponin of 0.05 which downtrended and there were no EKG changes; this was thought to be due to demand ischemia from sepsis. She remained afebrile, the right breast erythema improved, and her leukocytosis
improved. Her anemia remained stable with no concern for active bleeding. Her mental status and dementia remained at her baseline. On day of discharge she was stable. She was discharged to return to [facility].
Important imaging findings :
Abdomen/pelvis CT 11/27
IMPRESSION:
Diverticulosis without evidence of acute diverticulitis. No bowel obstruction.
No obstructive uropathy.
7 mm low-attenuation structure in the upper pole left kidney which appears to enhance following intravenous contrast. Cannot exclude small neoplasm. Initial step for further evaluation recommended with follow-up in 6 months.
Right breast asymmetric diffuse cutaneous soft tissue thickening. Clinical correlation advised to determine if this may be related to radiation therapy, inflammation, or inflammatory carcinoma.
Chest xray 11/27
FINDINGS/impression:
Minor parenchymal opacity in the right middle lobe, corresponding to parenchymal scarring as demonstrated on previous CT examination.
The lungs are otherwise clear, without evidence of consolidation or pneumonia. No pneumothorax. No pleural effusion. Mild cardiomegaly without vascular congestion or congestive heart failure.
Breast imaging 12/02
FINDINGS:
MAMMOGRAM: There is distortion on the right anteriorly, likely related to previous surgery. There are scattered, benign-appearing calcifications. There is skin thickening on the right which may be related to radiation changes. Vascular
calcifications are noted.
ULTRASOUND: Ultrasound imaging at the 11 to 12:00 position demonstrates distortion as noted mammographically. This likely correlates to the previous surgical site. There is skin thickening but no intradermal lesion. There is no cyst or solid mass.
There is no fluid collection.
IMPRESSION: Distortion on the right is likely related to previous surgery. This could be confirmed if outside images could be obtained. Skin thickening is identified both mammographically and by ultrasound, correlating to the skin thickening seen on
CT. This is most likely related to previous radiation changes although an acute process is difficult to exclude as there is no comparison. Skin thickening should be followed clinically.
Procedure findings :
Echo 12/03
CONCLUSIONS
Normal biventricular size and systolic function without regional wall motion
abnormality.
Aortic sclerosis without stenosis.
No prior study available for comparison.
Study limited by patient cooperation.
Discharge Plan
-
Patient Disposition: Assisted/SNF
Discharge Diagnosis/Procedures: Bacteremia, cellulitis
Condition: Fair
Diet: As tolerated
Activity: With assistance and As tolerated
Driving Restrictions: No driving
Bathing Restrictions: None
Blood Work: Repeat CBC, ESR, CRP, CMP in 1 week
Other Services: PT and OT
Activity Restrictions/Additional Instructions:
repeat blood cultures in 2 weeks .
7 mm low-attenuation structure in the upper pole left kidney which appears to enhance following intravenous contrast. Cannot exclude small neoplasm Repeat CT Kidneys in 6 months
Referrals:
Gagan Allison MD [Family Provider] - in one week
Additional Discharge Medication Instructions: New medications:
- Take cephalexin 500mg 4 times per day for 5 days
Medication changes:
- Stop taking diltiazem and furosemide until you talk to your PCP
Prescriptions:
New
cephalexin 500 mg Capsule
500 mg PO QID 5 Days Qty: 20 0RF
polyethylene glycol 3350 [HealthyLax] 17 gram Powder In Packet
1 g PO DAILY Qty: 14 0RF
Continued
atorvastatin 80 mg Tablet
80 mg PO HS
cyanocobalamin (vitamin B-12) 500 mcg Tablet
500 mcg PO DAILY
bisacodyl [Dulcolax (bisacodyl)] 10 mg Suppository
10 mg TX DAILY PRN (Reason: constipation)
losartan 50 mg tablet
50 mg PO DAILY
levothyroxine 150 mcg tablet
150 mcg PO DAILY
gabapentin 100 mg capsule
100 mg PO HS
folic acid 400 mcg Tablet
0.4 mg PO DAILY
magnesium hydroxide [Milk of Magnesia] 400 mg/5 mL Suspension
30 ml PO Q98H PRN (Reason: day 4 no bm)
ferrous sulfate 325 mg (65 mg iron) Tablet
325 mg PO Q48H
acetaminophen [Tylenol] 325 mg Tablet
650 mg PO Q4HPRN MDD 3000 mg PRN (Reason: mild pain/fever >100)
Fleet Enema 19-7 gram/118 mL Enema
118 ml TX DAILYPRN PRN (Reason: constipation)
memantine 10 mg Tablet
10 mg PO DAILY
donepezil 10 mg Tablet,Disintegrating
10 mg PO DAILY
diclofenac sodium 1 % Gel
1 ea TOPICAL BID
Discontinued
diltiazem HCl 240 mg capsule,extended release 24hr
240 mg PO DAILY
furosemide 40 mg Tablet
40 mg PO DAILY
Discharge Orders:
Discharge Patient (As Directed); Ordered 12/05/23
Ordered By: Dina Winston
Discharge Date and Time
Discharge Date/Time: 12/05/23 17:04
Print Language: MACEDONIAN
== END 2023-12-05 17:04 | DRG 871 ==
LOC: 4 WEST ACU 20:01
PROVIDERS: Nurse Practitioner Gerontology; Student in an Organized Health Care Education/Training Program; ADMITTING PHYSICIAN Internal Medicine; ATTENDING PHYSICIAN Hospitalist; CONSULT PHYSICIAN Internal Medicine Infectious Disease; EMERGENCY PHYSICIAN Emergency Medicine; FAMILY PHYSICIAN Family Medicine
PROC: 30233N1 Transfusion of Nonautologous Red Blood Cells into Peripheral Vein, Percutaneous Approach (ICD-10-PCS; 2023-11-28)
DX: A41.1 Sepsis due to other specified staphylococcus (principal); I21.A1 Myocardial infarction type 2; F03.93 Unspecified dementia, unspecified severity, with mood disturbance; F03.94 Unspecified dementia, unspecified severity, with anxiety; N17.9 Acute kidney failure, unspecified; B95.7 Other staphylococcus as the cause of diseases classified elsewhere; D53.9 Nutritional anemia, unspecified; F32.A Depression, unspecified; G40.909 Epilepsy, unspecified, not intractable, without status epilepticus; I10 Essential (primary) hypertension; I70.0 Atherosclerosis of aorta; K83.8 Other specified diseases of biliary tract; N61.0 Mastitis without abscess; E78.00 Pure hypercholesterolemia, unspecified; G89.29 Other chronic pain; K57.30 Diverticulosis of large intestine without perforation or abscess without bleeding; K59.00 Constipation, unspecified; E80.7 Disorder of bilirubin metabolism, unspecified; R74.01 Elevation of levels of liver transaminase levels; Z79.890 Hormone replacement therapy; Z79.899 Other long term (current) drug therapy; Z87.891 Personal history of nicotine dependence; Z85.3 Personal history of malignant neoplasm of breast; Z86.73 Personal history of transient ischemic attack (TIA), and cerebral infarction without residual deficits; Z87.440 Personal history of urinary (tract) infections; Z88.0 Allergy status to penicillin; Z88.8 Allergy status to other drugs, medicaments and biological substances; Z92.3 Personal history of irradiation
CPT/HCPCS: 93308; 71046; 74177; 76642; 77062; 77066; 80048; 80053; 80076; 80202; 81003; 81015; 82248; 82607; 82728; 82746; 83540; 83550; 83605; 83690; 84443; 84484; 85014; 85018; 85025; 85045; 85652; 86140; 86850; 86900; 86901; 86920; 87040; 87070; 87086; 87147; 87150; 87186; 87205; 87811; 93005; 93321; 93325; 96361; 96374; 96375; 97116; 97163; 97167; 97535; 99285; P9016; Q9967

== ENCOUNTER → 2023-12-13 11:27 | Outpatient (REF) | payer MEDICARE, OTHER, SELFPAY ==
[2023-12-13 12:52] LABS: % Basophils 0.8 % (0-2); % Eosinophils 9.5 % (0-6); % Immature Granulocytes 0.4 % (0-0.5); % Lymphocytes 24.6 % (20.5-51.1); % Monocytes 12.6 % (1.7-9.3); % Neutrophils 52.1 % (42.2-75.2); Absolute Basophils 0.1 10^3/uL (0-0.2); Absolute Eosinophils 0.7 10^3/uL (0-0.7); Absolute Lymphocytes 1.9 10^3/uL (1.2-3.4); Absolute Neutrophils 3.9 10^3/uL (1.4-6.5); Hematocrit 21.4 % (37.0-47.0); Hemoglobin 7.4 g/dL (12.0-16.0); Mean Corp Hgb Conc. 34.6 g/dL (33.0-37.0); Mean Corpuscular Hgb 35.1 pg (27.0-31.0); Mean Corpuscular Volume 101.4 fL (81.0-99.0); Mean Platelet Volume 10.3 fL (7.4-10.4); Nucleated Red Blood Cells % 0.3 %; Platelet Count 284 10^3/uL (130-400); Red Blood Cell Count 2.11 10^6/uL (4.20-5.40); Red Cell Dist. Width 16.7 % (11.5-14.5); White Blood Cell Count 7.6 10^3/uL (4.8-10.8)
[2023-12-13 12:56] LABS: ALT (SGPT) 39 U/L (0-35); AST (SGOT) 67 U/L (14-36); Albumin 3.1 g/dl (3.5-5.0); Alkaline Phosphatase 85 U/L (38-126); Blood Urea Nitrogen 9 mg/dl (7-17); Calcium 8.7 mg/dl (8.4-10.2); Carbon Dioxide 27 mmol/L (22-30); Chloride 102 mmol/L (98-107); Glucose 87 mg/dl (70-99); Potassium 3.8 mmol/L (3.5-5.1); Sodium 138 mmol/L (135-145); Total Bilirubin 1.2 mg/dl (0.2-1.3); Total Protein 6.2 g/dl (6.3-8.2); eGFR > 60.00
[2023-12-13 13:07] LABS: Erythrocyte Sed Rate 86 mm/hour (0-20)
== END ==
LOC: OLABP 11:27
PROVIDERS: ATTENDING PHYSICIAN Family Medicine
DX: F41.9 Anxiety disorder, unspecified (principal); F32.9 Major depressive disorder, single episode, unspecified; G40.509 Epileptic seizures related to external causes, not intractable, without status epilepticus; E78.5 Hyperlipidemia, unspecified; I10 Essential (primary) hypertension
CPT/HCPCS: 36415; 80053; 85025; 85652; 86140

== ENCOUNTER → 2023-12-18 09:01 | Outpatient (REF) | payer MEDICARE, OTHER, SELFPAY ==
[2023-12-18 09:56] LABS: Hematocrit 26.1 % (37.0-47.0); Mean Corp Hgb Conc. 34.5 g/dL (33.0-37.0); Mean Corpuscular Hgb 35.3 pg (27.0-31.0); Mean Corpuscular Volume 102.4 fL (81.0-99.0); Mean Platelet Volume 10.5 fL (7.4-10.4); Platelet Count 311 10^3/uL (130-400); Red Blood Cell Count 2.55 10^6/uL (4.20-5.40); Red Cell Dist. Width 17.2 % (11.5-14.5); White Blood Cell Count 10.2 10^3/uL (4.8-10.8)
[2023-12-18 10:09] LABS: ALT (SGPT) 61 U/L (0-35); AST (SGOT) 112 U/L (14-36); Albumin 3.9 g/dl (3.5-5.0); Alkaline Phosphatase 101 U/L (38-126); Blood Urea Nitrogen 13 mg/dl (7-17); Calcium 9.3 mg/dl (8.4-10.2); Carbon Dioxide 23 mmol/L (22-30); Chloride 102 mmol/L (98-107); Glucose 99 mg/dl (70-99); Potassium 4.2 mmol/L (3.5-5.1); Sodium 140 mmol/L (135-145); Total Bilirubin 1.9 mg/dl (0.2-1.3); Total Protein 7.3 g/dl (6.3-8.2); eGFR > 60.00
== END ==
LOC: OLABP 09:01
PROVIDERS: ATTENDING PHYSICIAN Family Medicine
DX: F41.9 Anxiety disorder, unspecified (principal); F32.9 Major depressive disorder, single episode, unspecified; G40.509 Epileptic seizures related to external causes, not intractable, without status epilepticus; E78.5 Hyperlipidemia, unspecified; I10 Essential (primary) hypertension
CPT/HCPCS: 36415; 80053; 85027; 87040

== ENCOUNTER → 2023-12-21 09:47 | Outpatient (REF) | payer MEDICARE, OTHER, SELFPAY ==
[2023-12-21 10:30] LABS: Hematocrit 22.4 % (37.0-47.0); Hemoglobin 7.7 g/dL (12.0-16.0); Mean Corp Hgb Conc. 34.4 g/dL (33.0-37.0); Mean Corpuscular Hgb 36.2 pg (27.0-31.0); Mean Corpuscular Volume 105.2 fL (81.0-99.0); Mean Platelet Volume 10.5 fL (7.4-10.4); Platelet Count 241 10^3/uL (130-400); Red Blood Cell Count 2.13 10^6/uL (4.20-5.40); Red Cell Dist. Width 17.4 % (11.5-14.5); White Blood Cell Count 8.8 10^3/uL (4.8-10.8)
== END ==
LOC: OLABP 09:47
PROVIDERS: ATTENDING PHYSICIAN Family Medicine
DX: F41.9 Anxiety disorder, unspecified (principal); F32.9 Major depressive disorder, single episode, unspecified; G40.509 Epileptic seizures related to external causes, not intractable, without status epilepticus; E78.5 Hyperlipidemia, unspecified; I10 Essential (primary) hypertension
CPT/HCPCS: 36415; 85027

== ENCOUNTER → 2024-04-26 10:00 | Outpatient (REF) | payer MEDICARE, OTHER, SELFPAY | LOC: OLABPG 10:00 | PROVIDERS: ATTENDING PHYSICIAN Family Medicine | DX: F41.9 Anxiety disorder, unspecified (principal); F32.9 Major depressive disorder, single episode, unspecified; G40.509 Epileptic seizures related to external causes, not intractable, without status epilepticus; E78.5 Hyperlipidemia, unspecified; I10 Essential (primary) hypertension | CPT/HCPCS: 87807 ==

== ENCOUNTER → 2024-04-28 08:40 | Outpatient (REF) | payer MEDICARE, OTHER, SELFPAY ==
[2024-04-28 10:05] LABS: Procalcitonin 0.09 ng/ml (0.0-0.25)
[2024-04-28 10:18] LABS: % Eosinophils 4.8 % (0-6); % Immature Granulocytes 0.3 % (0-0.5); % Lymphocytes 41.8 % (20.5-51.1); % Monocytes 9.6 % (1.7-9.3); % Neutrophils 42.5 % (42.2-75.2); Absolute Basophils 0.1 10^3/uL (0-0.2); Absolute Eosinophils 0.3 10^3/uL (0-0.7); Absolute Lymphocytes 2.9 10^3/uL (1.2-3.4); Absolute Monocytes 0.7 10^3/uL (0.1-0.6); Absolute Neutrophils 2.9 10^3/uL (1.4-6.5); Hematocrit 26.4 % (37.0-47.0); Hemoglobin 9.1 g/dL (12.0-16.0); Mean Corp Hgb Conc. 34.5 g/dL (33.0-37.0); Mean Corpuscular Volume 104.3 fL (81.0-99.0); Mean Platelet Volume 11.2 fL (7.4-10.4); Nucleated Red Blood Cells % 1.2 %; Platelet Count 251 10^3/uL (130-400); Red Blood Cell Count 2.53 10^6/uL (4.20-5.40); Red Cell Dist. Width 20.2 % (11.5-14.5); White Blood Cell Count 6.9 10^3/uL (4.8-10.8)
[2024-04-28 10:22] LABS: ALT (SGPT) 24 U/L (0-35); AST (SGOT) 47 U/L (14-36); Albumin 3.9 g/dl (3.5-5.0); Alkaline Phosphatase 114 U/L (38-126); Blood Urea Nitrogen 28 mg/dl (7-17); Calcium 9.1 mg/dl (8.4-10.2); Carbon Dioxide 24 mmol/L (22-30); Chloride 101 mmol/L (98-107); Glucose 82 mg/dl (70-99); Potassium 4.2 mmol/L (3.5-5.1); Sodium 135 mmol/L (135-145); Total Bilirubin 1.8 mg/dl (0.2-1.3); Total Protein 7.1 g/dl (6.3-8.2)
== END ==
LOC: OLABP 08:40
PROVIDERS: ATTENDING PHYSICIAN Family Medicine
DX: F41.9 Anxiety disorder, unspecified (principal); F32.9 Major depressive disorder, single episode, unspecified; G40.509 Epileptic seizures related to external causes, not intractable, without status epilepticus; E78.5 Hyperlipidemia, unspecified; I10 Essential (primary) hypertension
CPT/HCPCS: 36415; 80053; 84145; 85025

== ENCOUNTER 2024-05-19 18:58 | Inpatient (IN) | payer MEDICARE, OTHER, SELFPAY ==
[2024-05-19 13:34] VITALS: BP 99/44
--- NOTE | 2024-05-19 14:22 | ED.GENMED ---
History of Present Illness
General
Chief Complaint: Musculo-Skeletal Complaint
Source: family
Exam Limitations: dementia
Time Seen by Provider: 05/19/24 14:01
History of Present Illness
History of Present Illness:
84yoF with a history of prior CVA and dementia currently on hospice at [facility] presenting via EMS for evaluation of a left hip fracture. Patient had an unwitnessed fall in her room at [facility] yesterday. She was complaining of left leg pain and
had x-rays today which reportedly showed a left hip fracture. She was given multiple doses of PO morphine at her senior living and was sent to the ED for evaluation. Patient keeps eyes closed during exam and history is provided by daughter at
bedside. Daughter states she just wants the patient to be comfortable and does not want any aggressive measures at this time. Daughter states the patient is ready to and told her yesterday that she was 'leaving next week.' Patient is with
[facility] and has an aide that comes daily and a nurse that comes once a week.
Past History
Past History
ED Past Medical History: Cancer (Breast CA), CVA (X 2), HTN, Seizures, Hypothyroidism and Other (Ambulatory dysfunction using walker, UTI, urinary retention, anxiety/depression, myxedema coma)
ED Past Surgical History: Other (Cataracts, Lumpectomy)
Social History
Tobacco: Former smoker
Alcohol: None
Personal:
Living: assisted living ([facility])
Phy Exam
General Physical Exam
General Presentation: other (Chronically ill appearing, pale, keeps eyes closed during exam and does not participate with questioning)
General Skin: warm and dry
General Habitus: elderly
ENT Exam
ENT Exam: normocephalic
Cardiovascular Exam
Cardiovascular Exam: regular rate/rhythm
Pulmonary Exam
Pulmonary Exam: other (Shallow respirations)
Musculoskeletal Exam
Musculoskeletal Exam: other (No ecchymosis or deformity to L hip. Unable to range joint. 2+ DP pulse.)
Skin Exam
Skin Exam: pallor and other (Extremities cool to touch)
Course
Orders/Labs/Results
Orders:
Orders
05/19/24 14:21
Case Management Consult ONCE
Case Management Consult: Hospice
Hospice: Evaluation and treat
HYDROmorphone [Dilaudid] 0.25 mg IV NOW STA
05/19/24 15:28
Lorazepam [Ativan] 0.5 mg IV NOW STA
Morphine Sulfate 2 mg IV NOW STA
05/19/24 16:54
Morphine Sulfate 2 mg IV NOW STA
05/19/24 16:55
Morphine Sulfate 2 mg .ROUTE .STK-MED ONE
05/19/24 18:31
Admit/Transfer Patient As Directed
Co-Sign Provider:
Level of Care: Inpatient admission
Assign to:: Medical/Surgical
Physician / Group: ada
Diagnosis: hip fracture
Reason for Hospitalization: hip fracture
Expected length of stay greater than two midnights?: Yes
ELOS- Estimated Length of Stay in days: 3
I certify the patient meets the requirements for IP care: Yes
PRN Pain Medication Management As Directed
May give lesser potent ordered pain med per pt: Yes
preference::
Protocol:: Medication orders for pain may be administered in a
manner that supports deferring to patient preference
when the pt is:
- Requesting an ordered lesser potent pain medication.
Least to most potent pain medications are defined
as: acetaminophen < NSAID < tramadol < opioids
(morphine, oxycodone, hydromorphone).
- Requesting a lesser dose of the same medication IF
ORDERED.
- Requesting a less intrusive route of administration
if both routes are prescribed by the provider (PO <
IV).
05/19/24 18:32
Code Status As Directed
Resuscitation Status: Do not resuscitate
Reached after discussion with pt or family/Healthcare POA: Yes
05/19/24 18:33
DNR Bracelet Application ONCE
05/19/24 19:32
Lorazepam [Ativan] 0.5 mg IV Q2HPRN PRN
Morphine Sulfate 2 mg IV Q1HPRN PRN
Vital Signs
Initial and Last Documented VS:
Initial Vital Signs
Temp Pulse Resp BP Pulse Ox
97.6 F 69 16 99/44 97
05/19/24 13:34 05/19/24 13:34 05/19/24 13:34 05/19/24 13:34 05/19/24 13:34
Last Documented Vital Signs
Temp Pulse Resp BP Pulse Ox
97.6 F 38 20 58/38 97
05/19/24 13:34 05/19/24 20:29 05/19/24 20:29 05/19/24 16:10 05/19/24 13:34
MDM/Problems Addressed
Differential Diagnosis Includes:
84yoF presenting from her nursing facility for a left hip fracture on outpatient x-rays. Patient on hospice for the past 6 months. Patient keeps eyes closed during exam and does not participate. She is ill-appearing and pale with cool
extremities. No deformity or skin changes noted to left hip. Differential diagnosis includes but is not limited to: Hip fracture, hip dislocation, soft tissue injury
Initial ED plan: Daughter does not want any aggressive measures taken. Daughter clearly states that patient is ready to and would not want any further treatment. Will defer x-ray/testing at this time. IV Dilaudid ordered for pain. Will
consult case management for possible inpatient hospice.
*Critical Care Note
Total Time (30-74mins, 75-104mins- exclusive of procedures): Not Applicable
Update Note
Update Note:
I called and spoke with Micaela, patient's nurse at [facility] who also recommends inpatient hospice for her. Hospice nurse, Pau, evaluated patient at bedside. Patient appears to be actively dying. IV morphine and Ativan ordered for comfort
measures per hospice recommendations. Patient remained in ED for several hours without progression. She was admitted for inpatient hospice. Family members updated at bedside several times.
ED Attending Note
-
Portions of this chart may have been created with voice recognition software.� Occasional wrong word or��sound alike� substitutions may have occurred due to the inherent limitations of voice recognition software.
Discharge Plan
Departure
Patient Disposition: Admit
Date of Disposition: 05/19/24
Time of Disposition: 18:11
Presentation/result/management discussed w/ accepting MD/DO: Hospitalist
Discharge Problem:
Closed fracture of left hip, Admission for hospice care
Interventions
Interventions:
*Risk Screen - Suicide Last Done: 05/19/24 15:27
*Neglect/Abuse Screening Last Done: 05/19/24 15:27
ED-Musculoskeletal Assessment Last Done: 05/19/24 15:26
[2024-05-19] MEDS: DILAUDID 0.25 MG IV (14:31)
--- NOTE | 2024-05-19 15:24 | CM ---
CM following re: discharge planning.
CM consulted to make a referral for hospice care evaluation.
Reviewed pt's chart, met with pt. pt's daughter and granddaughter at bedside holding pt's hands. Emotional support offered and provided.
Pt is an 84 year old female, admitted for inpatient hospice care evaluation.
Pt's daughter stated that pt lives at [facility], was on hospice care with [facility] at home and pt brought to [facility] for evaluation for inpatient hospice.
A referral to hospice made, spoke to operations liaison and she will evaluate the pt shortly
D/C plan: inpatient hospice with hospice.
CM is available for emotional support.
[2024-05-19] MEDS: MORPHINE SULFATE 2 MG IV ×3 (15:44→19:49)
[2024-05-19] MEDS: ATIVAN 0.5 MG IV ×2 (15:44→19:49)
--- NOTE | 2024-05-19 15:56 | HOSPNOTE ---
Spoke with daughter and discussed hospice and the philosophy. I believe the patient is imminent and support provided. Updated SQUEEGEE OPERATOR and will continue to medicate for the known left hip fracture. I will continue to follow for support.
[2024-05-19 16:10] VITALS: BP 58/38
--- NOTE | 2024-05-19 18:16 | HPS.HSE ---
Family Physician
-
Family Physician: Gagan Allison MD
Chief Complaint
-
fall
History of Present Illness
84yoF with a history of prior CVA and dementia currently on hospice at [facility] presenting via EMS for evaluation of a left hip fracture s/p fall yesterday at [facility]. Patient had an unwitnessed fall in her room at [facility] yesterday. She was
complaining of left leg pain and had x-rays today which reportedly showed a left hip fracture. She was given multiple doses of PO morphine at her half-way and was sent to the ED for evaluation. Patient is sleeping. history obtained from
daughter at the bedside.Daughter states she just wants the patient to be comfortable and does not want any aggressive measures at this time. patient is under hospice care for past six months due to aging and deteriorating of her health condition.
patient was met by summer associate.admitting to inpatient hospice. patient received iv Ativan, morphine, Dilaudid in ER. admitting for further management.
Medical History
Past Medical History
Past Medical History: Reports Other
Additional Past Medical History:
Chronic anemia
Hypothyroidism
Breast cancer s/p lumpectomy ~40y ago
Dementia
CVA- 09/2022, 05/2022, 2014
Seizures- most recently 09/2022
Ambulatory dysfunction
HTN
?Urinary retention
?UTIs
Past Surgical History: Reports Other
Additional Past Surgical History:
Lumpectomy ~40y ago
Past Surgical History: Reports None
Social History
Tobacco: Non-smoker
Alcohol: None
Drug: None
Living: Intermediate
Family History
Family History: Not pertinent
Allergies / Home Medications
Allergies reflects when Allergies were last updated in [facility].
Home Medications with original date entered in [facility]
Allergy/Medication List:
Allergies
Allergy/AdvReac Type Severity Reaction Status Date / Time
adhesive tape Allergy Unknown Verified 11/28/23 17:12
diphenhydramine Allergy Unknown Verified 11/28/23 17:12
furosemide [From Lasix] Allergy Hearing Verified 12/05/23 15:44
Loss-unconfirmed
Penicillins Allergy Unknown Verified 11/28/23 17:12
Home Medications
bisacodyl 10 mg rectal suppository (Dulcolax (bisacodyl)) 10 mg VT DAILYPRN PRN constipation 03/04/23
losartan 50 mg tablet 50 mg PO DAILY Blood Pressure 03/25/23
diclofenac sodium 1 % topical gel 4 g topical BID knee pain 11/28/23
acetaminophen 650 mg rectal suppository 650 mg VT Q6HPRN PRN mild pain/fever 05/19/24
guaifenesin 200 mg tablet 200 mg PO Q4HPRN PRN congestion 05/19/24
hyoscyamine sulfate 0.125 mg tablet (Levsin) 0.125 mg PO Q4HPRN PRN secretions 05/19/24
morphine concentrate 100 mg/5 mL (20 mg/mL) oral solution 5 mg PO HS 05/19/24
morphine concentrate 100 mg/5 mL (20 mg/mL) oral solution 5 mg PO Q3HPRN PRN severe pain/sob 05/19/24
polyethylene glycol 3350 17 gram oral powder packet (HealthyLax) 17 g PO DAILY 05/19/24
Review of Systems
-
Unable to obtain full review of systems at this time due to: Acuity
Physical Exam
Vital Signs
Vital Signs
Temp Pulse Resp BP Pulse Ox
97.6 F 40 16 58/38 97
05/19/24 13:34 05/19/24 17:33 05/19/24 17:33 05/19/24 16:10 05/19/24 13:34
Physical Exam
General: Well Developed, Well Nourished and No Apparent Distress
HEENT: NormoCephalic, Moist mucous membranes and Atraumatic
Respiratory: Clear
Cardiac: S1/S2 and Regular Rhythm; No Murmur or Rub
GI: Soft, Non Tender, Non Distended and Normal Bowel Sounds; No Organomegaly
Rectal: Deferred by Provider
Musculoskeletal: No Clubbing, No Cyanosis and No Edema
Skin: No Rash
Neuro: Nonfocal/grossly intact
Impression/Plan
-
# Fall/hip fracture
-daughter requested comfort care
-no further aggressive treatment
-iv morphine prn for pain
# History of staph epi likely from mastitis
#Hypothyroidism
#Hypertension
#H/O CVA x3
#Dementia
#Seizures-
Code status: DNR
DVT ppx: SCDs
--- NOTE | 2024-05-19 18:43 | W.PN.UPDATE ---
Addendum entered and electronically signed by Jayro Comer MD 05/19/24 18:44:
Patient likely becoming hypotensive from pain medications.
Original Note:
Update Note
Progress Note Update
This is an addendum to the H&P written by Meghna Luu on 05/19/2024. Patient seen and examined independently with PICKLE WATER PUMP OPERATOR.
84-year-old female on hospice with past medical history of Staphylococcus epidermidis natremia, suspected mastitis versus cancer of the right breast, chronic macrocytic anemia, hypothyroidism, hypertension, urinary retention, CVA x 3, dementia,
seizure history, ambulatory dysfunction, hyperlipidemia, chronic pain, diverticulosis, presenting from [email or web address] for evaluation of left hip fracture after unwitnessed fall in her room at [email or web address] yesterday.
Patient is with a [facility].
Daughter states that patient is ready to . Comfort orders placed. Patient hypotensive and imminently dying.
[2024-05-19 21:41] VITALS: BP 60/26
--- NOTE | 2024-05-19 22:03 | PTCARENOTE ---
Received pt from the ED via stretcher, tie puller to hospital bed by staff x3. Pt unresponsive to stimuli, nonverbal, CPOT of 0 at this time. Grossly incontinent of bladder, linen changed and hygiene performed. Comfort care orders in place, medsurg,
regular apical, weak pedal pulses, b/l LE cool and mottled. Remainder of assessment as documented. Admission complete with pt's son and daughter at the bedside, updated on POC for the evening, contact information confirmed with pt's daughter
Sonia. Pt resting comfortably at this time, family at the bedside, emotional support provided, family expresses no concerns or needs at this time. Family oriented to call [facility] and unit.
[2024-05-20] MEDS: MORPHINE SULFATE 2 MG IV (00:44)
--- NOTE | 2024-05-20 05:08 | W.PN.DEATH ---
Pronouncement of
-
Called to see patient to pronounce.
No spontaneous heart tones or respirations noted.
Patient not responsive to verbal stimuli.
Patient is pronounced .
Time of : 05:05
Date of : 05/20/24
Cause of : Fall, left hip fracture, prior CVA, Dementia
Family Notified: Yes (Daughter Luiza )
--- NOTE | 2024-05-20 06:00 | W.PN.UPDATE ---
Update Note
Progress Note Update
Clinical Statistics Manager contacted per protocol. Spoke to patric Inman to released the body and certificate will be issued by the motor runner office as related to trauma.�
--- NOTE | 2024-05-20 06:15 | PTCARENOTE ---
Entered room on rounds; pt found to be without spontaneous breaths or heart tones. Covering PHOTO MASK INSPECTOR notified, responded bedside to pronounce TOD. Pt's daughter contacted, family expected to visit shortly. [facility] notified.
== END 2024-05-20 05:05 | disposition expired | DRG 951 ==
LOC: 3 WEST ACU 18:58
PROVIDERS: ADMITTING PHYSICIAN Hospitalist; ATTENDING PHYSICIAN Internal Medicine; EMERGENCY PHYSICIAN Student in an Organized Health Care Education/Training Program; FAMILY PHYSICIAN Family Medicine
DX: Z51.5 Encounter for palliative care (principal); S72.002A Fracture of unspecified part of neck of left femur, initial encounter for closed fracture; Z66 Do not resuscitate; E03.9 Hypothyroidism, unspecified; I10 Essential (primary) hypertension; D64.9 Anemia, unspecified; F03.90 Unspecified dementia, unspecified severity, without behavioral disturbance, psychotic disturbance, mood disturbance, and anxiety; R56.9 Unspecified convulsions; Z86.73 Personal history of transient ischemic attack (TIA), and cerebral infarction without residual deficits; Z87.891 Personal history of nicotine dependence; Z88.0 Allergy status to penicillin; Z79.891 Long term (current) use of opiate analgesic; Z85.3 Personal history of malignant neoplasm of breast; W19.XXXA Unspecified fall, initial encounter
CPT/HCPCS: 96374; 96375; 96376; 99285